=== PATIENT | female | born 1940 | race Caucasian/White ===

== ENCOUNTER → 2019-10-11 13:24 | Outpatient (CLI) | payer OTHER ==
--- NOTE | 2019-10-11 15:40 | NUR ---
DC INSTRUCTIONS GIVEN TO PT. STATES UNDERSTANDING. X-RAY SHOWED PICC IN PLACE. CALLING FOR TRANSPORTATION.
--- NOTE | 2019-10-11 15:51 | NUR ---
TRANSPORTATION ON THEIR WAY
== END | disposition home or self-care (01) ==
LOC: D.OPS 13:24
PROVIDERS: ATTEND Family Medicine
DX: A49.02 Methicillin resistant Staphylococcus aureus infection, unspecified site (principal)

== ENCOUNTER 2020-02-16 12:50 | Inpatient (IN) | payer OTHER ==
[~2020-02-16] VITALS: Ht 170.2 cm; Wt 56.7 kg
[2020-02-16 13:09] LABS: BASOPHILS 0.1 % (0-2); EOSINOPHILS 0.5 % (0-7); HEMATOCRIT 29.7 % (36.0-48.0); HEMOGLOBIN 9.4 g/dL (12-16); IMMATURE GRANULOCYTES 0.5 % (0-5); LYMPHOCYTES 6.8 % (15-50); MCH 28.1 pg (26.0-34.0); MCHC 31.6 g/dL (31.0-37.0); MCV 88.9 fL (80.0-100.0); MEAN PLATELET VOLUME 9.2 fL (7.4-10.4); MONOCYTES 6.1 % (2-11); PLATELET COUNT 444 10x3/uL (130-400); RBC 3.34 10x6/uL (4.00-5.40); RDW 18.9 % (11.5-14.5); WBC 16.7 10x3/uL (4.8-10.8)
[2020-02-16 13:16] LABS: APTT 29.7 SECONDS (22.8-39.4); INR 1.02 (0.85-1.17); PROTIME 13.3 SECONDS (11.6-15.0)
[2020-02-16 13:19] LABS: CALC OSMOLALITY 301 mosm/kg (275-300); CALCIUM 10.5 mg/dL (8.5-10.1); CARBON DIOXIDE 27.5 mmol/L (21.0-32.0); CHLORIDE - SERUM 107 mmol/L (98-107); CREATININE - SERUM 1.6 mg/dL (0.6-1.3); GLUCOSE 176 mg/dL (74-106); POTASSIUM - SERUM 3.6 mmol/L (3.5-5.1); SODIUM 144 mmol/L (136-145); UREA NITROGEN 42 mg/dL (7-18); eGFR NON AFRICAN AMERICAN 33 mL/min (90-120)
[2020-02-16 13:32] LABS: ALBUMIN 2.1 g/dL (3.4-5.0); ALKALINE PHOSPHATASE 164 U/L (30-120); ALT (SGPT) 13 U/L (10-68); BILIRUBIN - TOTAL 0.39 mg/dL (0.2-1.3); CKMB 0.8 U/L (0.0-3.6); CREATINE KINASE 21 UL (21-215); PROTEIN - SERUM 6.3 g/dL (6.4-8.2)
[2020-02-16 13:33] LABS: TROPONIN-I < 0.017 ng/mL (0.000-0.060)
--- NOTE | 2020-02-16 13:47 | NUR ---
CRITICAL LATIC ACID 2.6
[2020-02-16] MEDS ORDERED: TYLENOL ARTHRI650 MG PO (14:25)
[2020-02-16] MEDS ORDERED: ACIDOPHILUS-PE1 EACH PO (14:26)
[2020-02-16] MEDS ORDERED: CALCIUM 500 +1 EAC3 PO (14:26)
[2020-02-16] MEDS ORDERED: PLAVIX75 MG PO (14:26)
[2020-02-16] MEDS ORDERED: DILAUDID2 MG PO (14:27)
[2020-02-16] MEDS ORDERED: DURAGESIC1 PATCH .2 TRANSDERM (14:28)
[2020-02-16] MEDS ORDERED: HUMALOG 30100 UNITS/ SC (14:28)
[2020-02-16] MEDS ORDERED: GABAPENTIN300 MG PO (14:28)
[2020-02-16] MEDS ORDERED: FEROCON CAPSUL1 EACH PO (14:28)
[2020-02-16] MEDS ORDERED: LEVAQUIN750 MG PO (14:29)
[2020-02-16] MEDS ORDERED: MAG-OX 400 MG400 MG PO (14:29)
[2020-02-16] MEDS ORDERED: LISINOPRIL5 MG PO (14:29)
[2020-02-16] MEDS ORDERED: GLUCOPHAGE500 MG PO (14:29)
[2020-02-16] MEDS ORDERED: VITAMIN C500 M1 PO (14:30)
[2020-02-16] MEDS ORDERED: MULTI-DAY VITAM1 TAB PO (14:30)
[2020-02-16] MEDS ORDERED: OXYCODONE HCL5 M1 PO (14:30)
[2020-02-16] MEDS ORDERED: ZOLOFT25 MG PO (14:31)
[2020-02-16 18:24] VITALS: BP 129/53; BMI 19.6
--- NOTE | 2020-02-16 19:40 | NUR ---
PT SITTING UP IN BED WITHOUT DISTRESS, ORIENTED TO SELF ONLY. IV LEFT AC SL, FLUSHES EASILY. HEEL PROTECTORS BILAT. FENTANYL PATCH LEFT SHOULDER. DENIES PAIN. CL IN REACH, WILL CTM
[2020-02-16 20:00] VITALS: BP 115/58
[2020-02-17] VITALS: BP 118/48
[2020-02-17 04:00] VITALS: BP 99/49
[2020-02-17 04:07] LABS: BASOPHILS 0.1 % (0-2); EOSINOPHILS 1.9 % (0-7); HEMATOCRIT 25.8 % (36.0-48.0); HEMOGLOBIN 8.1 g/dL (12-16); IMMATURE GRANULOCYTES 0.5 % (0-5); LYMPHOCYTES 6.5 % (15-50); MCH 27.6 pg (26.0-34.0); MCHC 31.4 g/dL (31.0-37.0); MCV 88.1 fL (80.0-100.0); MEAN PLATELET VOLUME 9.4 fL (7.4-10.4); MONOCYTES 7.4 % (2-11); NEUTROPHILS 83.6 % (40-80); PLATELET COUNT 397 10x3/uL (130-400); RBC 2.93 10x6/uL (4.00-5.40); RDW 18.7 % (11.5-14.5)
[2020-02-17 04:40] LABS: ALBUMIN 1.8 g/dL (3.4-5.0); ANION GAP 10.7 mmol/L (8-16); BILIRUBIN - TOTAL 0.28 mg/dL (0.2-1.3); CALCIUM 10.6 mg/dL (8.5-10.1); CARBON DIOXIDE 29.4 mmol/L (21.0-32.0); CREATININE - SERUM 1.6 mg/dL (0.6-1.3); POTASSIUM - SERUM 4.1 mmol/L (3.5-5.1); PROTEIN - SERUM 5.4 g/dL (6.4-8.2)
[2020-02-17 04:59] LABS: C-REACTIVE PROTEIN 16.8 mg/dL (0.0-0.9)
--- NOTE | 2020-02-17 06:05 | NUR ---
PT HAS NOT VOIDED ALL SHIFT. ABD SLIGHTLY DISTENDED. PT CONFUSED AND COULD NOT ANSWER ABOUT NEEDING TO VOID. BLADDER SCAN SHOWED >296ML. NEEDED UA, IN AND OUT CATHED PT. 300ML OUT. URINE SAMPLE SENT TO LAB
[2020-02-17 06:23] LABS: BILIRUBIN NEGATIVE (NEGATIVE); GLUCOSE NEGATIVE (NEGATIVE); KETONE NEGATIVE (NEGATIVE); NITRITE NEGATIVE (NEGATIVE); SPECIFIC GRAVITY 1.015 (1.005-1.020); UROBILINOGEN NORMAL (NORMAL)
[2020-02-17 06:25] LABS: BACTERIA MODERATE /hpf (NEGATIVE); EPITHELIAL CELLS 0-5 /hpf (0-5); RED CELLS - URINE 0-5 /hpf (0-5)
--- NOTE | 2020-02-17 07:25 | NUR ---
CONTACTED @ [facility] REGARDING PT HAVING POA. WAS INFORMED THAT PT IS ABLE TO MAKE OWN DECISIONS AND ABLE TO SIGN FOR SELF.
--- NOTE | 2020-02-17 07:38 | NUR ---
PT RESTING IN BED WITH EYES OPEN. ALERT AND ORIENTED TO PERSON AND SITUATION. CONSENTS FOR PROCEDURE OBTAINED AT THIS TIME. PT VOICES UNDERSTANDING TO PROCEDURE TO BE PERFORMED. IV TO LEFT AC WITH NS @ KVO INFUSING VIA PUMP. SITE WITHOUT REDNESS OR EDEMA. PT DENIES PAIN AT THIS TIME. DENIES FURTHER NEEDS AT THIS TIME. CL WITHIN REACH. ENCOURAGED TO CALL WITH NEEDS. CONTINUE POC
--- NOTE | 2020-02-17 07:58 | NUR ---
CONTACTED LENORA AMBROCIO, SISTER TO PT PER PT REQUEST. INFORMED MRS. AMBROCIO OF PT HOSPITALIZATION AND PROCEDURE NEEDING TO BE PERFORMED. SHE VOICES UNDERSTANDING AND VERBALIZES PERMISSION FOR SURGERY TO BE PERFORMED TO HELP PT. INFORMED FAMILY THAT STAFF WOULD MAKE CONTACT WITH HER POST OP TO PROVIDE UPDATE. FAMILY VOICES UNDERSTANDING AND THANKFUL FOR STAFF'S HELP SHE [place]ES LIVE IN ANOTHER STATE. MRS. AMBROCIO VOICES THAT SHE WILL CONTACT BROTHER TO INFORM HIM OF CURRENT STATUS AND UPCOMING PROCEDURE.
[2020-02-17 09:13] VITALS: BP 98/53
[2020-02-17 10:23] VITALS: Ht 170.2 cm; Wt 56.7 kg
[2020-02-17 12:36] VITALS: BP 117/76
--- NOTE | 2020-02-17 16:18 | MORECARE ---
CASE MANAGEMENT DISCHARGE SUMMARY PATIENT: LINDSEY BRIZUELA UNIT: [id number] ADM DATE: 02/16/20 AGE: 79 : 40 SEX: F ROOM/BED: D.2204 AUTHOR: TARYN,DOC PHYSICIAN: REFERRING PHYSICIAN: VITALIY KENNY MD DATE OF SERVICE: 02/17/20 Discharge Plan Patient Name: LINDSEY BRIZUELA Facility: [facility]:[place] : 1940 Planned Disposition: Nursing Facility [facility] Cert Anticipated Discharge Date: Discharge Date: Expected LOS: Initial Reviewer: [email or web address] Initial Review Date: 02/16/2020 Generated: 02/17/20 5:18 pm Comments DCP- Discharge Planning Updated by [email or web address]: Estela Galdamez on 02/17/20 3:[address] Patient Name: LINDSEY BRIZUELA Admission Status: ER Accout number: [id number] Admission Date: 02-16-2020 : 1940 Admission Diagnosis: Attending: ZOYA, Current LOS: 1 Anticipated DC Date: Planned Disposition: Nursing Facility [facility] Cert Primary Insurance: NOVASYCR Discharge Planning Comments: PATIENT IS UNABLE TO ANSWER QUESTIONS, SHE IS A CUSTODIAL RESIDENT AT [facility] I SPOKE WITH FAITH AT [facility] AND SHE STATED THAT THE PATIENT IS USUALLY VERY ALERY AND ORIENTED. SHE HAS REFUSED CARE AND THERAPY IN THE PAST, BUT THEY WERE RECENTLY GETTING HER UP TO A NAM CHAIR AND TAKING HER TO THE [facility] FOR MEALS. SHE HAS BEEN THERE 1 YEAR IN A CUSTODIAL BED. SHE HAS A SON, CARL BRIZUELA [phone] HE COME OFTEN TO VISIT HER. I HAVE ATTEMPTED TO CALL HIM MULTIPLE TIMES TODAY TO GET CONSENT FROM HIM FOR SURGERY. DR ARGUETA WAS GOING TO TAKE HER TO SURGERY TODAY, BUT SHE IS NOT ABLE TO SIGN HER OWN CONSENTS. CM WILL CONTINUE TO FOLLOW AND ASSIST WITH GETTING AHOLD OF CARL I LEFT VOICE MESSAGES AT 1145 & 1600 Chief Payroll Clerk: Estela Galdamez DCPIA - Discharge Planning Initial Assessment Updated by [email or web address]: Estela Galdamez on 02/17/20 4:13 pm * Is the patient Alert and Oriented? No * PCP [facility] * Pharmacy [facility] * Facility Name [facility] * ADLs Total Dependent * List name and contact numbers for known caregivers / representatives who currently or will assist patient after discharge: CARL BRIZUELA (SON) [phone] * Verbal permission to speak to the caregivers and representatives has been obtained from the patient. N/A * Additional services required to return to the preadmission environment? No * Can the patient safely return to the preadmission environment? Yes * Has this patient been hospitalized within the prior 30 days at any hospital? No Patient Name: LINDSEY BRIZUELA Page [phone] at 1618 All edits/amendments must be made on the electronic document DICTATION DATE: 02/17/201617 MEDICAL ASSISTING PROGRAM DIRECTOR: ROSMERY 02/17/201617 RPT#: [id number] DC DATE: STATUS: ADM IN [facility] [address] [place] [address] END OF REPORT
[2020-02-17 16:46] VITALS: BP 104/62
[2020-02-17 20:00] VITALS: BP 98/37
[2020-02-18] VITALS (10 sets, daily range): BP systolic 83–128; BP diastolic 42–86
--- NOTE | 2020-02-18 02:28 | NUR ---
I have reviewed this patient and I concur with the Shift Assessment completed by the Licensed Practical Nurse today this shift.
[2020-02-18 07:09] LABS: % SATURATION 10 % (15-55); IRON 15 ug/dl (35-150); TOTAL IRON BIND CAPACITY 139 ug/dl (260-445); UNSAT IRON BIND CAPACITY 124 ug/dl (150-375)
[2020-02-18 08:40] LABS: BASOPHILS 0.2 % (0-2); EOSINOPHILS 2.1 % (0-7); HEMATOCRIT 25.8 % (36.0-48.0); HEMOGLOBIN 8.1 g/dL (12-16); IMMATURE GRANULOCYTES 0.6 % (0-5); LYMPHOCYTES 6.6 % (15-50); MCH 27.8 pg (26.0-34.0); MCHC 31.4 g/dL (31.0-37.0); MCV 88.7 fL (80.0-100.0); MEAN PLATELET VOLUME 9.9 fL (7.4-10.4); MONOCYTES 7.6 % (2-11); NEUTROPHILS 82.9 % (40-80); PLATELET COUNT 398 10x3/uL (130-400); RBC 2.91 10x6/uL (4.00-5.40); RDW 19.1 % (11.5-14.5); WBC 10.9 10x3/uL (4.8-10.8)
[2020-02-18 08:52] LABS: ALBUMIN 1.8 g/dL (3.4-5.0); ANION GAP 14.9 mmol/L (8-16); BILIRUBIN - TOTAL 0.28 mg/dL (0.2-1.3); CALCIUM 10.8 mg/dL (8.5-10.1); CARBON DIOXIDE 26.8 mmol/L (21.0-32.0); CREATININE - SERUM 1.8 mg/dL (0.6-1.3); POTASSIUM - SERUM 4.7 mmol/L (3.5-5.1); PROTEIN - SERUM 4.9 g/dL (6.4-8.2)
--- NOTE | 2020-02-18 10:00 | NUR ---
PATIENT GIVEN NECESSARY MEDICATIONS. PER EMAR WITH SOME DIFFICULTY. PATIENT SHOWED CONFUSION FOLLOWING COMMANDS SUCH OPENING HER MOUTH TO GET THE PILLS IN. CL IN REACH. BED SITTING UP. WCTM
--- NOTE | 2020-02-18 12:22 | NUR ---
Pt has numerous skin issues. 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 It is covered with necrotic tissue. There are deep tissue injury areas surrounding it. Left lateral leg has a chronic wound measuring 4.5cm x 3cm. Left heel is boggy and appears to have had a previous ulcer. Right lower leg is covered with open wounds. Unna boot was applied per Dr. Loera's orders. Coccyx / Sacral area was covered with ABD pads and secured with medipore for protection. Pt is scheduled for I & D of this area. Right leg: Unna boot applied Left leg/heel: Protected with mepilex and wrapped with kerlix. Pt is incontinent of bowels and bladder. She is unable to assist in any ADLs. She is being turned/repositioned q 2 hours by her primary nurse. Wound care will monitor.
--- NOTE | 2020-02-18 12:57 | NUR ---
PATIENT PREOPPED FOR SURGERY. ELIZABETH PLACED. STERILE TECHNIQUE MAINTAINED. 10 ML OF FLUID PLACED IN BALLOON. TOLERATED WELL. ASSISTED BY PREOP TECHS. WENT TO SURGERY DIRECTLY AFTER.
[2020-02-19 00:56] VITALS: BP 98/39
[2020-02-19 03:00] VITALS: BP 108/47
[2020-02-19 07:01] LABS: BASOPHILS 0.2 % (0-2); EOSINOPHILS 1.2 % (0-7); HEMATOCRIT 22.5 % (36.0-48.0); IMMATURE GRANULOCYTES 0.5 % (0-5); LYMPHOCYTES 7.8 % (15-50); MCH 27.3 pg (26.0-34.0); MCHC 31.1 g/dL (31.0-37.0); MCV 87.9 fL (80.0-100.0); MEAN PLATELET VOLUME 9.5 fL (7.4-10.4); MONOCYTES 6.8 % (2-11); NEUTROPHILS 83.5 % (40-80); PLATELET COUNT 400 10x3/uL (130-400); RBC 2.56 10x6/uL (4.00-5.40); WBC 11.1 10x3/uL (4.8-10.8)
[2020-02-19 07:23] LABS: ALBUMIN 1.6 g/dL (3.4-5.0); BILIRUBIN - TOTAL 0.33 mg/dL (0.2-1.3); CALCIUM 10.2 mg/dL (8.5-10.1); CREATININE - SERUM 1.7 mg/dL (0.6-1.3)
[2020-02-19 08:00] VITALS: BP 113/52
--- NOTE | 2020-02-19 08:00 | NUR ---
ALERT WITH CONFUSION NOTED D/T DEMENTIA. REQUIRES ASSSIT WITH FEEDING AND TAKES MEDS WHOLE. DRESSING INTACT TO BLE WITH WOUND VAC INTACT TO RECTAL ABCESS. IV TO RT F/A WITH NO S/S OF INFECTION/INFILTRATION. O2 2L N/C. LUNGS CTA WITH BOWEL SOUND NOTED X4.ELIZABETH CATH PATENT. ORDER NOTED FOR 1 UNIT PRBC'S. DENIES ANY PAINOR DISCOMFORT AT THIS TIME.
[2020-02-19 08:45] VITALS: BP 115/50
--- NOTE | 2020-02-19 11:55 | NUR ---
STARTED 1ST UNIT PRBC'S WITH NO S/S OF REACTION NOTED.CONSUMED 75% OF LUNCH
[2020-02-19 12:00] VITALS: BP 126/58
[2020-02-19 16:00] VITALS: BP 136/60
--- NOTE | 2020-02-19 17:00 | NUR ---
STARTED 2ND UNIT PRBC'S WITH NO REACTION NOTED.
--- NOTE | 2020-02-19 18:48 | NUR ---
FINISHED 2ND UNIT PRBC'S WITH NORMAL SALINE FLUSHING AT THIS TIME.
[2020-02-20] VITALS: BP 125/54
[2020-02-20 04:00] VITALS: BP 110/50
[2020-02-20 06:53] LABS: ALBUMIN 1.6 g/dL (3.4-5.0); ANION GAP 12.8 mmol/L (8-16); BILIRUBIN - TOTAL 0.47 mg/dL (0.2-1.3); CALCIUM 9.6 mg/dL (8.5-10.1); CARBON DIOXIDE 26.7 mmol/L (21.0-32.0); CREATININE - SERUM 1.7 mg/dL (0.6-1.3); POTASSIUM - SERUM 3.5 mmol/L (3.5-5.1); PROTEIN - SERUM 5.2 g/dL (6.4-8.2); VANCOMYCIN - RANDOM 14.6 ug/mL (10.0-20.0)
[2020-02-20 08:08] LABS: BASOPHILS 0.2 % (0-2); EOSINOPHILS 2.6 % (0-7); HEMATOCRIT 30.1 % (36.0-48.0); HEMOGLOBIN 9.8 g/dL (12-16); IMMATURE GRANULOCYTES 1.4 % (0-5); LYMPHOCYTES 9.5 % (15-50); MCH 27.9 pg (26.0-34.0); MCHC 32.6 g/dL (31.0-37.0); MCV 85.8 fL (80.0-100.0); MEAN PLATELET VOLUME 8.9 fL (7.4-10.4); MONOCYTES 8.8 % (2-11); NEUTROPHILS 77.5 % (40-80); PLATELET COUNT 321 10x3/uL (130-400); RBC 3.51 10x6/uL (4.00-5.40); RDW 17.3 % (11.5-14.5); WBC 10.6 10x3/uL (4.8-10.8)
--- NOTE | 2020-02-20 08:41 | NUR ---
ALERT AND ORIENTED TO SELF ONLY DUE TO DECREASE IN COGNITION RELATED TO DEMENTIA. DRESSINGS INTACT TO BLE AND WOUND VAC INTACT TO RECTAL AREA. HEEL PROTECTORS ON AND CHANGED POSITION FOR COMFORT. ELIZABETH CATH PATENT WITH RONAL URINE. O2 1L N/C. REQUIRES ASSSIT WITH FEEDING. FALL PRECAUTIONS IN PLACE. IVF INFUSING TO RT. F/A WITH NO S/S OF INFECTION/INFILTRATION.
[2020-02-20 09:00] VITALS: BP 105/47
[2020-02-20 12:00] VITALS: BP 128/57
[2020-02-20 15:25] VITALS: BP 118/57
[2020-02-20 21:14] VITALS: BP 148/61
[2020-02-21 01:01] VITALS: BP 143/59
[2020-02-21 04:47] LABS: BASOPHILS 0.2 % (0-2); EOSINOPHILS 3.2 % (0-7); HEMATOCRIT 31.4 % (36.0-48.0); HEMOGLOBIN 10.2 g/dL (12-16); IMMATURE GRANULOCYTES 1.4 % (0-5); LYMPHOCYTES 10.4 % (15-50); MCH 27.7 pg (26.0-34.0); MCHC 32.5 g/dL (31.0-37.0); MCV 85.3 fL (80.0-100.0); MEAN PLATELET VOLUME 9.5 fL (7.4-10.4); NEUTROPHILS 75.8 % (40-80); PLATELET COUNT 357 10x3/uL (130-400); RBC 3.68 10x6/uL (4.00-5.40); RDW 17.3 % (11.5-14.5); WBC 10.5 10x3/uL (4.8-10.8)
[2020-02-21 05:16] VITALS: BP 140/60
[2020-02-21 05:22] LABS: ALBUMIN 1.5 g/dL (3.4-5.0); ANION GAP 9.3 mmol/L (8-16); BILIRUBIN - TOTAL 0.34 mg/dL (0.2-1.3); CALCIUM 9.4 mg/dL (8.5-10.1); CARBON DIOXIDE 28.2 mmol/L (21.0-32.0); CREATININE - SERUM 1.4 mg/dL (0.6-1.3); POTASSIUM - SERUM 3.5 mmol/L (3.5-5.1)
[2020-02-21 08:04] VITALS: BP 155/64
[2020-02-21 12:30] VITALS: BP 165/59
--- NOTE | 2020-02-21 12:34 | NUR ---
Nutrition follow-up: Calorie count started today Diet: Regular with Ensure TID PO intake ~55% average of last 6 meals Wound VAC in place to sacrum Pt needs assistance with meals 2/2 dementia RDN following.
--- NOTE | 2020-02-21 14:16 | NUR ---
REMAINS WITHOUT NEEDS.PATIENT HAS NOT EATEN MUCH TODAY. SHE TAKES 2 BITES AND REFUSES TO EAT MORE.MONITOR FOR NEEDS
[2020-02-21 17:03] VITALS: BP 150/71
--- NOTE | 2020-02-21 18:24 | NUR ---
DID NOT EAT DINNER,REFUSED. SHE IS WITHOUT DISTRESS.CONT PLAN OF CARE
[2020-02-21 20:00] VITALS: BP 150/62
[2020-02-22] VITALS: BP 125/59
--- NOTE | 2020-02-22 01:56 | NUR ---
I have reviewed this patient and I concur with the Shift Assessment completed by the Licensed Practical Nurse today this shift.
[2020-02-22 04:00] VITALS: BP 130/61
--- NOTE | 2020-02-22 04:15 | NUR ---
2130) ATTEMPTED TO GIVE APPLESAUCE TO GIVE MEDS WOULD NOT OPEN MOUTH.DRSGS. DRY AND INTACT TO LOWER EXT. BILAT.PEDAL PULSES PRESENT.FEET ELEVATED. WILL CONTINUE TO MONITOR FOR ANY IN NEUROVASCULAR STATUS AND FOLLOW CURRENT PLAN OF CARE.
[2020-02-22 04:32] LABS: BASOPHILS 0.2 % (0-2); EOSINOPHILS 2.6 % (0-7); HEMATOCRIT 33.2 % (36.0-48.0); HEMOGLOBIN 10.7 g/dL (12-16); IMMATURE GRANULOCYTES 1.8 % (0-5); LYMPHOCYTES 11.5 % (15-50); MCH 27.9 pg (26.0-34.0); MCHC 32.2 g/dL (31.0-37.0); MCV 86.5 fL (80.0-100.0); MONOCYTES 9.8 % (2-11); NEUTROPHILS 74.1 % (40-80); PLATELET COUNT 337 10x3/uL (130-400); RBC 3.84 10x6/uL (4.00-5.40); RDW 17.5 % (11.5-14.5)
[2020-02-22 04:50] LABS: ALBUMIN 1.5 g/dL (3.4-5.0); ANION GAP 12.4 mmol/L (8-16); BILIRUBIN - TOTAL 0.32 mg/dL (0.2-1.3); CALCIUM 9.3 mg/dL (8.5-10.1); CARBON DIOXIDE 26.1 mmol/L (21.0-32.0); CREATININE - SERUM 1.2 mg/dL (0.6-1.3); POTASSIUM - SERUM 3.5 mmol/L (3.5-5.1); PROTEIN - SERUM 5.1 g/dL (6.4-8.2)
[2020-02-22 07:54] VITALS: BP 156/69
--- NOTE | 2020-02-22 08:27 | NUR ---
Nutrition: Calorie Count: Pt has refused all meals on 02/21/20. Nothing to record Pt not meeting estimated energy needs Recommend PEG tube placement and TF if medically feasible. RDN following.
[2020-02-22 12:06] VITALS: BP 167/78
[2020-02-22 15:44] VITALS: BP 123/63
[2020-02-22 21:44] VITALS: BP 160/69
--- NOTE | 2020-02-22 23:48 | NUR ---
REC'D CHGE OF SHIFT WALKING ROUNDS.IN SITTING POSITION.DRSG TO COCCYX INTACT.BLESSING BOOT DRSG.INTACT RIGHT LOWER EXT.02 2L NC. MONITOR SHOWING SINUS RHYTHM. FSBS 147. WILL CONTINUE TO MONITOR FOR ANY FURTHER CHGES IN NEURVASCULAR STATUS AND FOLLOW CURRENT PLAN OF CARE.
[2020-02-23 00:50] VITALS: BP 150/56
--- NOTE | 2020-02-23 05:00 | NUR ---
I have reviewed this patient and I concur with the Shift Assessment completed by the Licensed Practical Nurse today this shift.
[2020-02-23 05:01] LABS: BASOPHILS 0.2 % (0-2); EOSINOPHILS 2.3 % (0-7); HEMATOCRIT 31.3 % (36.0-48.0); IMMATURE GRANULOCYTES 1.7 % (0-5); LYMPHOCYTES 13.2 % (15-50); MCH 27.7 pg (26.0-34.0); MCHC 31.9 g/dL (31.0-37.0); MCV 86.7 fL (80.0-100.0); MEAN PLATELET VOLUME 9.3 fL (7.4-10.4); MONOCYTES 10.2 % (2-11); NEUTROPHILS 72.4 % (40-80); PLATELET COUNT 334 10x3/uL (130-400); RBC 3.61 10x6/uL (4.00-5.40); RDW 17.4 % (11.5-14.5); WBC 9.2 10x3/uL (4.8-10.8)
[2020-02-23 05:22] LABS: ALBUMIN 1.5 g/dL (3.4-5.0); ANION GAP 10.4 mmol/L (8-16); BILIRUBIN - TOTAL 0.27 mg/dL (0.2-1.3); CALCIUM 8.7 mg/dL (8.5-10.1); CARBON DIOXIDE 25.9 mmol/L (21.0-32.0); CREATININE - SERUM 1.2 mg/dL (0.6-1.3); POTASSIUM - SERUM 3.3 mmol/L (3.5-5.1); PROTEIN - SERUM 4.8 g/dL (6.4-8.2)
[2020-02-23 06:55] VITALS: BP 146/52
--- NOTE | 2020-02-23 07:20 | NUR ---
PT RESTING IN BED. RESP EVEN AND UNLABORED. PT AWAKE, ORIENTED TO PERSON ONLY AT THIS TIME. PT DOES RESPOND TO SIMPLE YES AND NO QUESTIONS. PT DENIES PAIN AT THIS TIME. IV TO RIGHT FOREARM WITH 1/2 NS @ 75ML/HR INFUSING VIA PUMP. SITE WITHOUT REDNESS OR EDEMA. PT DENIES FURTHER NEEDS AT THIS TIME. CL WITHIN REACH. ENCOURAGED TO CALL WITH NEEDS. CONTINUE POC
[2020-02-23 09:21] VITALS: BP 154/70
--- NOTE | 2020-02-23 09:51 | NUR ---
PT RESTING QUIETLY IN BED. MORNING MEDICATIONS ADMINISTERED PER MD ORDERS. PT CONSUMED 120ML OF MILK AT THIS TIME, THEN VOICES "THAT IS ENOUGH FOR NOW" PT DENIES FURTHER NEEDS AT THIS TIME. CL WITHIN REACH. ENCOURAGED TO CALL WITH NEEDS.
--- NOTE | 2020-02-23 11:45 | NUR ---
PT RESTING IN BED WITH EYES OPENED. OFFERED PT WATER, PT DENIES. OFFERED PT MILK. PT CONSUMED 240ML OF MILK AT THIS TIME. DENIES PAIN AT THIS TIME. CL WITHIN REACH. ENCOURAGED TO CALL WITH NEEDS.
--- NOTE | 2020-02-23 12:18 | MORECARE ---
CASE MANAGEMENT DISCHARGE SUMMARY PATIENT: LINDSEY BRIZUELA UNIT: [id number] ADM DATE: 02/16/20 AGE: 79 : 40 SEX: F ROOM/BED: D.2204 AUTHOR: RICHARD CENTENO PHYSICIAN: REFERRING PHYSICIAN: VITALIY KENNY MD DATE OF SERVICE: 02/23/20 Discharge Plan Patient Name: LINDSEY BRIZUELA [facility] [facility] 1940 Planned Disposition: Nursing Facility [facility] Cert Anticipated Discharge Date: Discharge Date: Expected LOS: Initial Reviewer: [email or web address] Initial Review Date: 02/16/2020 Generated: 02/23/20 1:18 pm Comments DCP- Discharge Planning Updated by [email or web address]: Estela Galdamez on 02/23/20 11:[address] I spoke with Ginny at [facility] to see if there was documentation about hospice. She said I would need to speak with the patient and/or her sister. Ginny stated that she is her own decision maker, but her sister pays her bill. She does have a son who is local. I spoke with the patient to see what she would want and she asked to know her options. I tried to explain them to her the best I could, but I do not think she understood. She then said "I don't even know where I am at" I asked her if she has a sister and she answered that appropriately. She did given me permission to call her sister. I called her and left her a message for her to call me back. 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 SHE HAS REFUSED CARE AND THERAPY IN THE PAST, BUT THEY WERE RECENTLY GETTING HER UP TO A NAM CHAIR AND TAKING HER TO THE [facility] FOR MEALS. SHE HAS BEEN THERE 1 YEAR IN A [facility] BED. SHE HAS A SON, CARL BRIZUELA [phone] HE COME OFTEN TO VISIT HER. I HAVE ATTEMPTED TO CALL HIM MULTIPLE TIMES TODAY TO GET CONSENT FROM HIM FOR SURGERY. DR ARGUETA WAS GOING TO TAKE HER TO SURGERY TODAY, BUT SHE IS NOT ABLE TO SIGN HER OWN CONSENTS. CM WILL CONTINUE TO FOLLOW AND ASSIST WITH GETTING AHOLD OF CARL I LEFT VOICE MESSAGES AT 1145 & 1600 [employer] Technical Assistant: Estela Galdamez DCPIA - Discharge Planning Initial Assessment Updated by [email or web address]: Estela Galdamez on 02/17/20 4:13 pm * Is the patient Alert and Oriented? No * PCP [facility] * [facility] * Facility Name [facility] * ADLs Total Dependent * List name and contact numbers for known caregivers / representatives who currently or will assist patient after discharge: CARL BRIZUELA (SON) [phone] * Verbal permission to speak to the caregivers and representatives has been obtained from the patient. N/A * Additional services required to return to the preadmission environment? No * Can the patient safely return to the preadmission environment? Yes * Has this patient been hospitalized within the prior 30 days at any hospital? No Last DP export: 02/17/20 3:18 p Patient Name: LINDSEY BRIZUELA Page [phone] at 1218 All edits/amendments must be made on the electronic document DICTATION DATE: 02/23/201217 DAM WORKER: ROSMERY 02/23/201217 RPT#: [id number] DC DATE: STATUS: ADM IN [facility] [address] [place] [address] END OF REPORT
--- NOTE | 2020-02-23 13:06 | NUR ---
Nutrition follow-up: Diet: Regular as tolerated with Ensure TID PO intake was better 02/22/20; pt ate ~35% average of 3 meals. Pt not eating enough for wound healing at this time. Labs reviewed Recommend PEG tube placement and TF started. RDN following.
--- NOTE | 2020-02-23 13:25 | MORECARE ---
CASE MANAGEMENT DISCHARGE SUMMARY PATIENT: LINDSEY BRIZUELA UNIT: [id number] ADM DATE: 02/16/20 AGE: 79 : 40 SEX: F ROOM/BED: D.2204 AUTHOR: RICHARD CENTENO PHYSICIAN: REFERRING PHYSICIAN: VITALIY KENNY MD DATE OF SERVICE: 02/23/20 Discharge Plan Patient Name: LINDSEY BRIZUELA [facility] [facility] 1940 Planned Disposition: Nursing Facility [facility] Cert Anticipated Discharge Date: Discharge Date: Expected LOS: Initial Reviewer: [email or web address] Initial Review Date: 02/16/2020 Generated: 02/23/20 2:24 pm Comments DCP- Discharge Planning Updated by [email or web address]: Estela Galdamez on 02/23/20 12:[address] I spoke with Robin (sister) at length about her options. She would like to talk with her sister. I attempted to make arrangements but she does not have a phone in her room. I have placed a work order to get her a phone. She will then speak with Vane, her brother and the patient's son about Hospice and get back with me DCP- Discharge Planning Updated by [email or web address]: Estela Galdamez on 02/23/20 11:[address] I spoke with Ginny at [facility] to see if there was documentation about hospice. She said I would need to speak with the patient and/or her sister. Ginny stated that she is her own decision maker, but her sister pays her bill. She does have a son who is local. I spoke with the patient to see what she would want and she asked to know her options. I tried to explain them to her the best I could, but I do not think she understood. She then said "I don't even know where I am at" I asked her if she has a sister and she answered that appropriately. She did given me permission to call her sister. I called her and left her a message for her to call me back. DCP- Discharge Planning Updated by [email or web address]: Estela Galdamez on 02/17/20 3:[address] Patient Name: LINDSEY BRIZUELA Admission Status: ER Accout number: [id number] Admission Date: 02-16-2020 : 1940 Admission Diagnosis: Attending: ZOYA, Current LOS: 1 Anticipated DC Date: Planned Disposition: Nursing Facility [facility] Primary [facility] Discharge Planning Comments: PATIENT IS UNABLE TO ANSWER QUESTIONS, SHE IS A CORRECTION RESIDENT AT [facility] I SPOKE WITH FAITH AT [facility] AND SHE STATED THAT THE PATIENT IS USUALLY VERY ALERY AND ORIENTED. SHE HAS REFUSED CARE AND THERAPY IN THE PAST, BUT THEY WERE RECENTLY GETTING HER UP TO A NAM CHAIR AND TAKING HER TO THE [facility] FOR MEALS. SHE HAS BEEN THERE 1 YEAR IN A CORRECTION BED. SHE HAS A SON, CARL BRIZUELA [phone] HE COME OFTEN TO VISIT HER. I HAVE ATTEMPTED TO CALL HIM MULTIPLE TIMES TODAY TO GET CONSENT FROM HIM FOR SURGERY. DR ARGUETA WAS GOING TO TAKE HER TO SURGERY TODAY, BUT SHE IS NOT ABLE TO SIGN HER OWN CONSENTS. CM WILL CONTINUE TO FOLLOW AND ASSIST WITH GETTING AHOLD OF CARL I LEFT VOICE MESSAGES AT 1145 & 1600 Grape Pruner: Estela Galdamez DCPIA - Discharge Planning Initial Assessment Updated by [email or web address]: Estela Galdamez on 02/17/20 4:13 pm * Is the patient Alert and Oriented? No * PCP [facility] * Pharmacy [facility] * Facility Name [facility] * ADLs Total Dependent * List name and contact numbers for known caregivers / representatives who currently or will assist patient after discharge: CARL BRIZUELA (SON) [phone] * Verbal permission to speak to the caregivers and representatives has been obtained from the patient. N/A * Additional services required to return to the preadmission environment? No * Can the patient safely return to the preadmission environment? Yes * Has this patient been hospitalized within the prior 30 days at any hospital? No Last DP export: 02/23/20 11:18 a Patient Name: LINDSEY BRIZUELA Page [phone] at 1325 All edits/amendments must be made on the electronic document DICTATION DATE: 02/23/20 1325 TIP SCOURER: ROSMERY 02/23/20 1325 RPT#: [id number] DC DATE: STATUS: ADM IN [facility] [address] [place] [address] END OF REPORT
--- NOTE | 2020-02-23 13:30 | NUR ---
PT SITTING UP IN BED FEEDING SELF LUNCH. PT GLEN WELL. PT DENIES ANY NEED FOR HELP AT THIS TIME. CL WITHIN REACH. ENCOURAGED TO CALL WITH NEEDS.
[2020-02-23 13:45] VITALS: BP 146/89
--- NOTE | 2020-02-23 17:04 | MORECARE ---
CASE MANAGEMENT DISCHARGE SUMMARY PATIENT: LINDSEY BRIZUELA UNIT: [id number] ADM DATE: 02/16/20 AGE: 79 : 40 SEX: F ROOM/BED: D.2204 AUTHOR: RICHARD CENTENO PHYSICIAN: REFERRING PHYSICIAN: VITALIY KENNY MD DATE OF SERVICE: 02/23/20 Discharge Plan Patient Name: LINDSEY BRIZUELA [facility] [facility] 1940 Planned Disposition: Nursing Facility [facility] Cert Anticipated Discharge Date: Discharge Date: Expected LOS: Initial Reviewer: [email or web address] Initial Review Date: 02/16/2020 Generated: 02/23/20 6:04 pm Comments DCP- Discharge Planning Updated by [email or web address]: Estela Galdamez on 02/23/20 3:[address] PHONE IN ROOM AND SISTER CONNECTED WITH PATIENT DCP- Discharge Planning Updated by [email or web address]: Estela Galdamez on 02/23/20 12:[address] I spoke with Robin (sister) at length about her options. She would like to talk with her sister. I attempted to make arrangements but she does not have a phone in her room. I have placed a work order to get her a phone. She will then speak with Vane, her brother and the patient's son about Hospice and get back with me DCP- Discharge Planning Updated by [email or web address]: Estela Galdamez on 02/23/20 11:[address] I spoke with Ginny at [facility] to see if there was documentation about hospice. She said I would need to speak with the patient and/or her sister. Ginny stated that she is her own decision maker, but her sister pays her bill. She does have a son who is local. I spoke with the patient to see what she would want and she asked to know her options. I tried to explain them to her the best I could, but I do not think she understood. She then said "I don't even know where I am at" I asked her if she has a sister and she answered that appropriately. She did given me permission to call her sister. I called her and left her a message for her to call me back. DCP- Discharge Planning Updated by [email or web address]: Estela Galdamez on 02/17/20 3:[address] Patient Name: LINDSEY BRIZUELA Admission Status: ER Accout number: [id number] Admission Date: 02-16-2020 : 1940 Admission Diagnosis: Attending: ZOYA, Current LOS: 1 Anticipated DC Date: Planned Disposition: Nursing Facility [facility] Primary Insurance: [employer] Discharge Planning Comments: PATIENT IS UNABLE TO ANSWER QUESTIONS, SHE IS A [facility] RESIDENT AT [facility] I SPOKE WITH FAITH AT [facility] AND SHE STATED THAT THE PATIENT IS USUALLY VERY ALERY AND ORIENTED. SHE HAS REFUSED CARE AND THERAPY IN THE PAST, BUT THEY WERE RECENTLY GETTING HER UP TO A NAM CHAIR AND TAKING HER TO THE [facility] FOR MEALS. SHE HAS BEEN THERE 1 YEAR IN A [facility] BED. SHE HAS A SON, CARL BRIZUELA [phone] HE COME OFTEN TO VISIT HER. I HAVE ATTEMPTED TO CALL HIM MULTIPLE TIMES TODAY TO GET CONSENT FROM HIM FOR SURGERY. DR ARGUETA WAS GOING TO TAKE HER TO SURGERY TODAY, BUT SHE IS NOT ABLE TO SIGN HER OWN CONSENTS. CM WILL CONTINUE TO FOLLOW AND ASSIST WITH GETTING AHOLD OF [place] I LEFT VOICE MESSAGES AT 1145 & 1600 Channel Development Director: Estela Galdamez DCPIA - Discharge Planning Initial Assessment Updated by [email or web address]: Estela Galdamez on 02/17/20 4:13 pm * Is the patient Alert and Oriented? No * PCP [facility] * Pharmacy [facility] * Facility Name [facility] * ADLs Total Dependent * List name and contact numbers for known caregivers / representatives who currently or will assist patient after discharge: CARL BRIZUELA (SON) [phone] * Verbal permission to speak to the caregivers and representatives has been obtained from the patient. N/A * Additional services required to return to the preadmission environment? No * Can the patient safely return to the preadmission environment? Yes * Has this patient been hospitalized within the prior 30 days at any hospital? No Last DP export: 02/23/20 12:25 p Patient Name: LINDSEY BRIZUELA Page [phone] at 1704 All edits/amendments must be made on the electronic document DICTATION DATE: 02/23/20 1704 SMALL ANIMAL VETERINARIAN: ROSMERY 02/23/201703 RPT#: [id number] DC DATE: STATUS: ADM IN [facility] [address] [place] [address] END OF REPORT
[2020-02-23 17:06] VITALS: BP 150/74
--- NOTE | 2020-02-23 19:50 | NUR ---
SITTING UP IN BED. CONFUSED. RARELY SPEAKS. VERY SLOW TO RESPOND. RESP EVEN AND NONLABORED. BED ALARM ON FOR PT SAFETY. 1/2NS @ 75 MLHR INFUSING IN RT FOREARM. BILAT FOOT DROP BOOTS IN USE. DRSGS NOTED TO BLE. ELIZABETH CATH PATENT AND DRAINING CLEAR YELLOW URINE. TELEMETRY SHOWS SR WITH RATE OF 80. DRSG TO SACRUM. SR ELEVATED X2. CL IN REACH.
[2020-02-23 20:00] VITALS: BP 155/70
--- NOTE | 2020-02-23 23:00 | NUR ---
RESTING QUIETLY WITH EYES CLOSED. RESP NONLABORED. NO DISTRESS. BED ALARM ON. CL IN REACH.
[2020-02-24] VITALS: BP 134/58
--- NOTE | 2020-02-24 02:15 | NUR ---
LYING IN BED WITH HOB ELEVATED. EYES CLOSED. RESP SHALLOW, NONLABORED. NO DISTRESS. CL IN REACH.
--- NOTE | 2020-02-24 02:49 | NUR ---
BED BATH GIVEN AT THIS TIME PER STAFF X2. COMPLETE LINEN CHANGE. CL IN REACH.
[2020-02-24 04:00] VITALS: BP 146/54
--- NOTE | 2020-02-24 07:05 | NUR ---
PT RESTING IN BED WITH EYES CLOSED. RESP EVEN AND UNLABORED. IV TO LEFT FOREARM WITH 1/2NS @ 75ML/HR INFUSING VIA PUMP. SITE WITHOUT REDNESS OR EDEMA. F/C PATENT TO GRAVITY. DRESSING C/D/I TO SACRAL AREA. BLESSING BOOT IN PLACE TO RIGHT LOWER EXTREMITY AND DRESSING TO LEFT LOWER EXTREMITY. FOOT DROP BOOTS IN PLACE TO BLE. CL WITHIN REACH. ENCOURAGED TO CALL WITH NEEDS. CONTINUE POC
[2020-02-24 08:02] VITALS: BP 144/66
[2020-02-24 08:35] LABS: BASOPHILS 0.4 % (0-2); EOSINOPHILS 2.1 % (0-7); HEMATOCRIT 35.3 % (36.0-48.0); HEMOGLOBIN 11.2 g/dL (12-16); IMMATURE GRANULOCYTES 1.9 % (0-5); LYMPHOCYTES 11.5 % (15-50); MCH 27.8 pg (26.0-34.0); MCHC 31.7 g/dL (31.0-37.0); MCV 87.6 fL (80.0-100.0); MEAN PLATELET VOLUME 9.3 fL (7.4-10.4); MONOCYTES 7.8 % (2-11); NEUTROPHILS 76.3 % (40-80); PLATELET COUNT 280 10x3/uL (130-400); RBC 4.03 10x6/uL (4.00-5.40); RDW 17.6 % (11.5-14.5); WBC 11.2 10x3/uL (4.8-10.8)
[2020-02-24 08:47] LABS: ANION GAP 14.3 mmol/L (8-16); CALCIUM 8.4 mg/dL (8.5-10.1); CARBON DIOXIDE 22.4 mmol/L (21.0-32.0); CREATININE - SERUM 0.9 mg/dL (0.6-1.3); MAGNESIUM - SERUM 1.6 mg/dL (1.8-2.4); POTASSIUM - SERUM 3.7 mmol/L (3.5-5.1)
[2020-02-24 12:06] VITALS: BP 148/54
--- NOTE | 2020-02-24 16:22 | MORECARE ---
CASE MANAGEMENT DISCHARGE SUMMARY PATIENT: LINDSEY BRIZUELA UNIT: [id number] ADM DATE: 02/16/20 AGE: 79 : 40 SEX: F ROOM/BED: D.2204 AUTHOR: RICHARD CENTENO PHYSICIAN: REFERRING PHYSICIAN: VITALIY KENNY MD DATE OF SERVICE: 02/24/20 Discharge Plan Patient Name: LINDSEY BRIZUELA [facility] [facility] 1940 Planned Disposition: Nursing Facility JO[facility] Cert Anticipated Discharge Date: Discharge Date: Expected LOS: Initial Reviewer: [email or web address] Initial Review Date: 02/16/2020 Generated: 02/24/20 5:22 pm Comments DCP- Discharge Planning Updated by [id number]: Estela Galdamez on 02/23/20 3:[address] PHONE IN ROOM AND SISTER CONNECTED WITH PATIENT DCP- Discharge Planning Updated by [id number]: Estela Galdamez on 02/23/20 12:[address] I spoke with Robin (sister) at length about her options. She would like to talk with her sister. I attempted to make arrangements but she does not have a phone in her room. I have placed a work order to get her a phone. She will then speak with Vane, her brother and the patient's son about Hospice and get back with me DCP- Discharge Planning Updated by [id number]: Estela Galdamez on 02/23/20 11:[address] I spoke with Ginny at [place] to see if there was documentation about hospice. She said I would need to speak with the patient and/or her sister. Ginny stated that she is her own decision maker, but her sister pays her bill. She does have a son who is local. I spoke with the patient to see what she would want and she asked to know her options. I tried to explain them to her the best I could, but I do not think she understood. She then said "I don't even know where I am at" I asked her if she has a sister and she answered that appropriately. She did given me permission to call her sister. I called her and left her a message for her to call me back. DCP- Discharge Planning Updated by [id number]: Estela Galdamez on 02/17/20 3:[address] Patient Name: LINDSEY BRIZUELA Admission Status: ER Accout number: [id number] Admission Date: 02-16-2020 : 1940 Admission Diagnosis: Attending: ZOYA, Current LOS: 1 Anticipated DC Date: Planned Disposition: Nursing Facility [facility] Primary Insurance: [employer] Discharge Planning Comments: PATIENT IS UNABLE TO ANSWER QUESTIONS, SHE IS A HALF-WAY RESIDENT AT [facility] I SPOKE WITH FAITH AT [facility] AND SHE STATED THAT THE PATIENT IS USUALLY VERY ALERY AND ORIENTED. SHE HAS REFUSED CARE AND THERAPY IN THE PAST, BUT THEY WERE RECENTLY GETTING HER UP TO A NAM CHAIR AND TAKING HER TO THE CAFE FOR MEALS. SHE HAS BEEN THERE 1 YEAR IN A HALF-WAY BED. SHE HAS A SON, CARL BRIZUELA [phone] HE COME OFTEN TO VISIT HER. I HAVE ATTEMPTED TO CALL HIM MULTIPLE TIMES TODAY TO GET CONSENT FROM HIM FOR SURGERY. DR ARGUETA WAS GOING TO TAKE HER TO SURGERY TODAY, BUT SHE IS NOT ABLE TO SIGN HER OWN CONSENTS. CM WILL CONTINUE TO FOLLOW AND ASSIST WITH GETTING AHOLD OF CARL I LEFT VOICE MESSAGES AT 1145 & 1600 Workers' Compensation Commissioner: Estela Galdamez DCPIA - Discharge Planning Initial Assessment Updated by [id number]: Estela Galdamez on 02/17/20 4:13 pm * Is the patient Alert and Oriented? No * PCP [facility] * Pharmacy [facility] * Facility Name [facility] * ADLs Total Dependent * List name and contact numbers for known caregivers / representatives who currently or will assist patient after discharge: CARL BRIZUELA (SON) [phone] * Verbal permission to speak to the caregivers and representatives has been obtained from the patient. N/A * Additional services required to return to the preadmission environment? No * Can the patient safely return to the preadmission environment? Yes * Has this patient been hospitalized within the prior 30 days at any hospital? No External Providers External Provider: [facility] *(provides inpt [facility] Next Contact Date: Service Request Date: Service Type: Resolution: Reviewer: Comments: Last DP export: 02/23/20 4:04 p Patient Name: LINDSEY BRIZUELA Page [phone] at 1622 All edits/amendments must be made on the electronic document DICTATION DATE: 02/24/201621 ELEVATOR SERVICE MECHANIC: ROSMERY 02/24/201621 RPT#: [id number] DC DATE: STATUS: ADM IN [facility] [address] [place] [address] END OF REPORT
[2020-02-24 16:46] VITALS: BP 142/64
--- NOTE | 2020-02-24 17:31 | MORECARE ---
CASE MANAGEMENT DISCHARGE SUMMARY PATIENT: LINDSEY BRIZUELA UNIT: [id number] ADM DATE: 02/16/20 AGE: 79 : 40 SEX: F ROOM/BED: D.2204 AUTHOR: TARYNDOC PHYSICIAN: REFERRING PHYSICIAN: VITALIY KENNY MD DATE OF SERVICE: 02/24/20 Discharge Plan Patient Name: LINDSEY BRIZUELA [facility] [facility] 1940 Planned Disposition: Nursing Facility [facility] Cert Anticipated Discharge Date: Discharge Date: Expected LOS: Initial Reviewer: [email or web address] Initial Review Date: 02/16/2020 Generated: 02/24/20 6:31 pm Comments DCP- Discharge Planning Updated by [email or web address]: Nubia Whiting on 02/24/20 4:[address] CM spoke with Robin Mckeon and she stated that she wanted patient to go to Hospice. CM gave her [facility] phone number to call and check to see if they will fit her expectations. Robin will call CM back to let her know if [facility] is their choice. Robin did call CM back and they are wanting [facility]. FINA completed. CM faxed records to [facility]. Eldon with [facility] came out and evaluated patient and stated that she is not GIP appropriate. Eldon was going to call patients daughter and give update. Eldon stated that family was considering either [facility] or [facility] for placement. CM will continue to follow and assist as needed with discharge planning needs. DCP- Discharge Planning Updated by [id number]: Estela Galdamez on 02/23/20 3:[address] PHONE IN ROOM AND SISTER CONNECTED WITH PATIENT DCP- Discharge Planning Updated by [email or web address]: Estela Galdamez on 02/23/20 12:[address] I spoke with Robin (sister) at length about her options. She would like to talk with her sister. I attempted to make arrangements but she does not have a phone in her room. I have placed a work order to get her a phone. She will then speak with Vane, her brother and the patient's son about Hospice and get back with me DCP- Discharge Planning Updated by [email or web address]: Estela Galdamez on 02/23/20 11:[address] I spoke with Ginny at [place] to see if there was documentation about hospice. She said I would need to speak with the patient and/or her sister. Ginny stated that she is her own decision maker, but her sister pays her bill. She does have a son who is local. I spoke with the patient to see what she would want and she asked to know her options. I tried to explain them to her the best I could, but I do not think she understood. She then said "I don't even know where I am at" I asked her if she has a sister and she answered that appropriately. She did given me permission to call her sister. I called her and left her a message for her to call me back. DCP- Discharge Planning Updated by [id number]: Estela Galdamez on 02/17/20 3:[address] Patient Name: LINDSEY BRIZUELA Admission Status: ER Accout number: [id number] Admission Date: 02-16-2020 : 1940 Admission Diagnosis: Attending: ZOYA, Current LOS: 1 Anticipated DC Date: Planned Disposition: Nursing Facility [facility] Primary Insurance: [facility] Discharge Planning Comments: PATIENT IS UNABLE TO ANSWER QUESTIONS, SHE IS A [facility] RESIDENT AT [facility] I SPOKE WITH FAITH AT [facility] AND SHE STATED THAT THE PATIENT IS USUALLY VERY ALERY AND ORIENTED. SHE HAS REFUSED CARE AND THERAPY IN THE PAST, BUT THEY WERE RECENTLY GETTING HER UP TO A NAM CHAIR AND TAKING HER TO THE CAFE FOR MEALS. SHE HAS BEEN THERE 1 YEAR IN A [facility] BED. SHE HAS A SON, CARL BRIZUELA [phone] HE COME OFTEN TO VISIT HER. I HAVE ATTEMPTED TO CALL HIM MULTIPLE TIMES TODAY TO GET CONSENT FROM HIM FOR SURGERY. DR ARGUETA WAS GOING TO TAKE HER TO SURGERY TODAY, BUT SHE IS NOT ABLE TO SIGN HER OWN CONSENTS. CM WILL CONTINUE TO FOLLOW AND ASSIST WITH GETTING AHOLD OF CARL I LEFT VOICE MESSAGES AT 1145 & 1600 Gas Flow Regulator: Estela Galdamez DCPIA - Discharge Planning Initial Assessment Updated by [email or web address]: Estela Galdamez on 02/17/20 4:13 pm * Is the patient Alert and Oriented? No * PCP [facility] * [facility] * Facility Name [facility] * ADLs Total Dependent * List name and contact numbers for known caregivers / representatives who currently or will assist patient after discharge: CARL BRIZUELA (SON) [phone] * Verbal permission to speak to the caregivers and representatives has been obtained from the patient. N/A * Additional services required to return to the preadmission environment? No * Can the patient safely return to the preadmission environment? Yes * Has this patient been hospitalized within the prior 30 days at any hospital? No Last DP export: 02/24/20 3:22 p Patient Name: LINDSEY BRIZUELA Page 15030 at 1731 All edits/amendments must be made on the electronic document DICTATION DATE: 02/24/201730 MUSEUM INFORMATICS SPECIALIST: ROSMERY 02/24/201730 RPT#: [id number] DC DATE: STATUS: ADM IN [facility] [address] [place] [address] END OF REPORT
--- NOTE | 2020-02-24 18:01 | MORECARE ---
CASE MANAGEMENT DISCHARGE SUMMARY PATIENT: LINDESY BRIZUELA UNIT: [id number] ADM DATE: 02/16/20 AGE: 79 : 40 SEX: F ROOM/BED: D.2204 AUTHOR: TARYNDOC PHYSICIAN: REFERRING PHYSICIAN: VITALIY KENNY MD DATE OF SERVICE: 02/24/20 Discharge Plan Patient Name: LINDSEY BRIZUELA [facility] : 1940 Planned Disposition: Nursing Facility [facility] Cert Anticipated Discharge Date: Discharge Date: Expected LOS: Initial Reviewer: [email or web address] Initial Review Date: 02/16/2020 Generated: 02/24/20 7:00 pm Comments DCP- Discharge Planning Updated by [id number]: Nubia Whiting on 02/24/20 4:[address] CM spoke with Robin Mckeon and she stated that she wanted patient to go to Hospice. CM gave her [facility] phone number to call and check to see if they will fit her expectations. Robin will call CM back to let her know if [facility] is their choice. Robin did call CM back and they are wanting [facility]. FINA completed. CM faxed records to [facility]. Eldon with [facility] came out and evaluated patient and stated that she is not GIP appropriate. Eldon was going to call patients daughter and give update. Eldon stated that family was considering either [facility] or [facility] for placement. CM will continue to follow and assist as needed with discharge planning needs. DCP- Discharge Planning Updated by [id number]: Estela Galdamez on 02/23/20 3:[address] PHONE IN ROOM AND SISTER CONNECTED WITH PATIENT DCP- Discharge Planning Updated by [email or web address]: Estela Galdamez on 02/23/20 12:[address] I spoke with Robin (sister) at length about her options. She would like to talk with her sister. I attempted to make arrangements but she does not have a phone in her room. I have placed a work order to get her a phone. She will then speak with Vane, her brother and the patient's son about Hospice and get back with me DCP- Discharge Planning Updated by [email or web address]: Estela Galdamez on 02/23/20 11:[address] I spoke with Ginny at [place] to see if there was documentation about hospice. She said I would need to speak with the patient and/or her sister. Ginny stated that she is her own decision maker, but her sister pays her bill. She does have a son who is local. I spoke with the patient to see what she would want and she asked to know her options. I tried to explain them to her the best I could, but I do not think she understood. She then said "I don't even know where I am at" I asked her if she has a sister and she answered that appropriately. She did given me permission to call her sister. I called her and left her a message for her to call me back. DCP- Discharge Planning Updated by [email or web address]: Estela Galdamez on 02/17/20 3:[address] Patient Name: LINDSEY BRIZUELA Admission Status: ER Accout number: [id number] Admission Date: 02-16-2020 : 1940 Admission Diagnosis: Attending: ZOYA, Current LOS: 1 Anticipated DC Date: Planned Disposition: Nursing Facility [facility] Primary Insurance[facility] Discharge Planning Comments: PATIENT IS UNABLE TO ANSWER QUESTIONS, SHE IS A MCC RESIDENT AT [facility] I SPOKE WITH FAITH AT [facility] AND SHE STATED THAT THE PATIENT IS USUALLY VERY ALERY AND ORIENTED. SHE HAS REFUSED CARE AND THERAPY IN THE PAST, BUT THEY WERE RECENTLY GETTING HER UP TO A NAM CHAIR AND TAKING HER TO THE CAFE FOR MEALS. SHE HAS BEEN THERE 1 YEAR IN A [facility] BED. SHE HAS A SON, CARL BRIZUELA [phone] HE COME OFTEN TO VISIT HER. I HAVE ATTEMPTED TO CALL HIM MULTIPLE TIMES TODAY TO GET CONSENT FROM HIM FOR SURGERY. DR ARGUETA WAS GOING TO TAKE HER TO SURGERY TODAY, BUT SHE IS NOT ABLE TO SIGN HER OWN CONSENTS. CM WILL CONTINUE TO FOLLOW AND ASSIST WITH GETTING AHOLD OF CARL I LEFT VOICE MESSAGES AT 1145 & 1600 Strip Mill Operator: Estela Galdamez DCPIA - Discharge Planning Initial Assessment Updated by [id number]: Estela Galdamez on 02/17/20 4:13 pm * Is the patient Alert and Oriented? No * PCP [facility] * [facility] * Facility Name [facility] * ADLs Total Dependent * List name and contact numbers for known caregivers / representatives who currently or will assist patient after discharge: CARL BRIZUELA (SON) [phone] * Verbal permission to speak to the caregivers and representatives has been obtained from the patient. N/A * Additional services required to return to the preadmission environment? No * Can the patient safely return to the preadmission environment? Yes * Has this patient been hospitalized within the prior 30 days at any hospital? No Last DP export: 02/24/20 4:31 p Patient Name: LINDSEY BRIZUELA Page [phone] at 1801 All edits/amendments must be made on the electronic document DICTATION DATE: 02/24/201799 WELDER TECH: ROSMERY 02/24/201799 RPT#: [id number] DC DATE: STATUS: ADM IN [facility] [address] [place] [address] END OF REPORT
[2020-02-24 20:00] VITALS: BP 132/54
--- NOTE | 2020-02-24 20:00 | NUR ---
PATIENT RESTING IN BED WATCHING TV. NO S/S OF ACUTE DISTRESS. NO C/O AT THIS TIME. PATIENT HAS IV IN LEFT FOREARM, 1/2 NORMAL SALINE. IV IS PATENT WITHOUT REDNESS, SWELLING, OR TENDERNESS. PATIENT HAS TELEMETRY: 99 SINUS. PATIENT HAS INCISION ON RECTUM FROM I&D OF ABSCESS, DRESSING C/D/I. PATIENT HAS DRESSING ON LEFT LEG, DRESSING C/D/I. PATIENT HAS BLESSING BOOT ON RIGHT LEG. PATIENT HAS ELIZABETH, PATIENT IS INCONTNIENT OF BOWEL. PATIENT IS ASSINIBOINE AND SIOUX. BED ALARM ON. CALL LIGHT WITHIN REACH. WILL CONTINUE TO MONITOR.
[2020-02-25] VITALS: BP 126/50
[2020-02-25 04:00] VITALS: BP 106/45
--- NOTE | 2020-02-25 04:19 | NUR ---
I have reviewed this patient and I concur with the Shift Assessment completed by the Licensed Practical Nurse today this shift.
--- NOTE | 2020-02-25 07:02 | NUR ---
PT RESTING IN BED WITH EYES CLOSED. OPENS EYES SPONTANEOUSLY STAFF ENTERS ROOM. RESP EVEN AND UNLABORED. PT DENIES PAIN AT THIS TIME. IV TO LEFT FOREARM WITH 1/2 NS @ 75ML/HR INFUSING VIA PUMP. SITE WITHOUT REDNESS OR EDEMA. DENIES FURTHER NEEDS AT THIS TIME. CL WITHIN REACH. CONTINUE POC
[2020-02-25 09:45] VITALS: BP 121/47
[2020-02-25 13:53] VITALS: BP 158/65
--- NOTE | 2020-02-25 14:30 | NUR ---
UNNA BOOT CHANGED ON RIGHT LOWER LEG. PT TOLERATED WELL.
[2020-02-25 17:08] LABS: AEROBE ID Final report (())
[2020-02-25 18:10] VITALS: BP 143/52
[2020-02-25 20:00] VITALS: BP 141/66
--- NOTE | 2020-02-25 20:00 | NUR ---
PATIENT RESTING IN BED WATCHING TV. NO S/S OF ACUTE DISTRESS. NO C/O AT THIS TIME. PATIENT APPEARS PERKIER THAN YESTERDAY, AND SAYS "I HAD A GOOD DAY TODAY". PATIENT HAS IV IN LEFT FOREARM, 1/2 NORMAL SALINE @ 75 ML/HR. IV IS PATENT WITHOUT REDNESS, SWELLING, OR TENDERNESS. PATIENT HAS TELEMETRY: 74 NORMAL SINUS WITH PAC. PATIENT HAS DRESSING ON BUTTOCKS FROM PREVIOUS SURGERY ON ABSCESS ON THE RECTUM, DRESSING C/D/I. PATIENT HAS DRESSING ON LEFT LEG, C/D/I. PATIENT HAS UNNA BOOT ON RIGHT LEG. CALL LIGHT WITHIN REACH. WILL CONTINUE TO MONITOR.
[2020-02-26] VITALS: BP 138/69
--- NOTE | 2020-02-26 00:27 | NUR ---
I have reviewed this patient and I concur with the Shift Assessment completed by the Licensed Practical Nurse today this shift.
[2020-02-26 04:00] VITALS: BP 140/72
--- NOTE | 2020-02-26 07:33 | NUR ---
AWAKE AND ALERT. ORIENTED X 3. NO C/O AT THIS TIME. LUNGS ARE CLEAR BILATERALLY, NO COUGH NOTED. SKIN IS INTACT WITHOUT REDNESS EXCEPT WOUND TO RECTAL AREA WHICH HAS A DRY INTACT DRESSING IN PLACE. IV TO RIGHT FOREARM IS PATENT WITHOUT REDNESS AT INSERTION SITE. ELIZABETH PATENT WITH CLEAR YELLOW URINE. DENIES NEEDS.
[2020-02-26 08:02] VITALS: BP 144/52
--- NOTE | 2020-02-26 09:00 | NUR ---
TOOK AM MEDS WITH ASSIST ONE AT A TIME. ATE A FEW BITES OF BREAKFAST. WAS AFRAID OF EATING THE BREAD DUE TO GLUTEN ALLERGY. REFUSED OFFER OF ALTERNATIVE FOODS.
--- NOTE | 2020-02-26 09:29 | MORECARE ---
CASE MANAGEMENT DISCHARGE SUMMARY PATIENT: LINDSEY BRIZUELA UNIT: [id number] ADM DATE: 02/16/20 AGE: 79 : 40 SEX: F ROOM/BED: D.2204 AUTHOR: RICHARD CENTENO PHYSICIAN: REFERRING PHYSICIAN: VITALIY KENNY MD DATE OF SERVICE: 02/26/20 Discharge Plan Patient Name: LINDSEY BRIZUELA [facility] [facility] 1940 Planned Disposition: Nursing Facility [facility] Cert Anticipated Discharge Date: Discharge Date: Expected LOS: Initial Reviewer: [email or web address] Initial Review Date: 02/16/2020 Generated: 02/26/20 10:29 am Comments DCP- Discharge Planning Updated by [id number]: Estela Galdamez on 02/26/20 8:[address] LATE ENTRY: 02/25/20 @ 1135 Spoke with Robin patient's sister and she stated that she had spoken to Ginny at [place] and would like to proceed with [facility]. Her first choice is [facility] and thee [facility] I called [facility] and spoke with Letty, she stated that a semi private room would cost $7400.00 per month and that she will need a NEG COVID test prior to admission to the facility. She said that insurance would cover the Hospice related needs. I also called [facility] and left a message with Beatrice to call me back. Letty at [facility] [facility] gave me a Private home in [facility] that is 1/2 the cost of [facility]. She stated that the lady that run's it is Anne Marie her number is [phone]. I will call Robin and update her on what I have found out. DCP- Discharge Planning Updated by [id number]: Nubia Whiting on 02/24/20 4:[address] CM spoke with Robin Mckeon and she stated that she wanted patient to go to Hospice. MUKUND gave her [facility] phone number to call and check to see if they will fit her expectations. Robin will call MUKUND back to let her know if [facility] is their choice. Robin did call [facility] back and they are wanting [facility]. FINA completed. CM faxed records to [facility]. Eldon with [facility] came out and evaluated patient and stated that she is not GIP appropriate. Eldon was going to call patients daughter and give update. Eldon stated that family was considering either [facility] or [facility] for placement. CM will continue to follow and assist as needed with discharge planning needs. DCP- Discharge Planning Updated by [email or web address]: Estela Galdamez on 02/23/20 3:[address] PHONE IN ROOM AND SISTER CONNECTED WITH PATIENT DCP- Discharge Planning Updated by [id number]: Estela Galdamez on 02/23/20 12:[address] I spoke with Robin (sister) at length about her options. She would like to talk with her sister. I attempted to make arrangements but she does not have a phone in her room. I have placed a work order to get her a phone. She will then speak with Vane, her brother and the patient's son about Hospice and get back with me DCP- Discharge Planning Updated by [id number]: Estela Galdamez on 02/23/20 11:[address] I spoke with Ginny at [place] to see if there was documentation about hospice. She said I would need to speak with the patient and/or her sister. Ginny stated that she is her own decision maker, but her sister pays her bill. She does have a son who is local. I spoke with the patient to see what she would want and she asked to know her options. I tried to explain them to her the best I could, but I do not think she understood. She then said "I don't even know where I am at" I asked her if she has a sister and she answered that appropriately. She did given me permission to call her sister. I called her and left her a message for her to call me back. DCP- Discharge Planning Updated by [id number]: Estela Galdamez on 02/17/20 3:[address] Patient Name: LINDSEY BRIZUELA Admission Status: ER Accout number: [id number] Admission Date: 02-16-2020 : 1940 Admission Diagnosis: Attending: ZOYA, Current LOS: 1 Anticipated DC Date: Planned Disposition: Nursing Facility [facility] Primary Insurance: [facility] Discharge Planning Comments: PATIENT IS UNABLE TO ANSWER QUESTIONS, SHE IS A USP RESIDENT AT [facility] I SPOKE WITH FAITH AT [facility] AND SHE STATED THAT THE PATIENT IS USUALLY VERY ALERY AND ORIENTED. SHE HAS REFUSED CARE AND THERAPY IN THE PAST, BUT THEY WERE RECENTLY GETTING HER UP TO A NAM CHAIR AND TAKING HER TO THE CAFE FOR MEALS. SHE HAS BEEN THERE 1 YEAR IN A [facility]P BED. SHE HAS A SON, CARL BRIZUELA [phone] HE COME OFTEN TO VISIT HER. I HAVE ATTEMPTED TO CALL HIM MULTIPLE TIMES TODAY TO GET CONSENT FROM HIM FOR SURGERY. DR ARGUETA WAS GOING TO TAKE HER TO SURGERY TODAY, BUT SHE IS NOT ABLE TO SIGN HER OWN CONSENTS. CM WILL CONTINUE TO FOLLOW AND ASSIST WITH GETTING AHOLD OF CARL I LEFT VOICE MESSAGES AT 1145 & 1600 Establishment Guide: Estela Galdamez DCPIA - Discharge Planning Initial Assessment Updated by [id number]: Estela Galdamez on 02/17/20 4:13 pm * Is the patient Alert and Oriented? No * PCP [facility] * Pharmacy [facility] * Facility Name [facility] * ADLs Total Dependent * List name and contact numbers for known caregivers / representatives who currently or will assist patient after discharge: CARL BRIZUELA (SON) [phone] * Verbal permission to speak to the caregivers and representatives has been obtained from the patient. N/A * Additional services required to return to the preadmission environment? No * Can the patient safely return to the preadmission environment? Yes * Has this patient been hospitalized within the prior 30 days at any hospital? No Last DP export: 02/24/20 5:01 p Patient Name: LINDSEY BRIZUELA Page 22213 at 0929 All edits/amendments must be made on the electronic document DICTATION DATE: 02/26/20928 WATER RESOURCES PROGRAM DIRECTOR: ROSMERY 02/26/20928 RPT#: [id number] DC DATE: STATUS: ADM IN [facility] [address] [place] [address] END OF REPORT
--- NOTE | 2020-02-26 11:30 | NUR ---
IV TO LEFT FOREARM IS LEAKING. D/C WITH CATHETER INTACT. RESITED TO RIGHT FOREARM AFTER ONE ATTEMPT WITH 20 G. TOLERATED WITHOUT C/O. DENIES NEEDS.
--- NOTE | 2020-02-26 13:00 | NUR ---
ATE ALL OF LUNCH. DENIES NEEDS.
[2020-02-26 13:58] VITALS: BP 156/63
--- NOTE | 2020-02-26 16:16 | NUR ---
RESTING QUIETLY IN BED. DENIES NEEDS.
[2020-02-26 18:13] VITALS: BP 142/70
[2020-02-26 20:00] VITALS: BP 167/65
--- NOTE | 2020-02-26 20:13 | NUR ---
awake,alert.oriented to self only. resp even and unalbored. no distress noted. iv to lfa intact without redness or edema noted. marion patent and draining concentrated urine. fluids encouraged. cl in reach. fall precautions in place.
[2020-02-27] VITALS: BP 149/68
[2020-02-27 04:00] VITALS: BP 158/64
--- NOTE | 2020-02-27 04:28 | NUR ---
I have reviewed this patient and I concur with the Shift Assessment completed by the Licensed Practical Nurse today this shift.
--- NOTE | 2020-02-27 08:00 | NUR ---
ASSESSMENT PER FLOW SHEET. PATIENT IS WITHOUT DISTRESS.FALL PREVENTION IN PLACE WITH BED ALARM.DOOR OPEN
[2020-02-27 09:50] VITALS: BP 180/65
--- NOTE | 2020-02-27 13:36 | MORECARE ---
CASE MANAGEMENT DISCHARGE SUMMARY PATIENT: LINDSEY BRIZUELA UNIT: [id number] ADM DATE: 02/16/20 AGE: 79 : 40 SEX: F ROOM/BED: D.2204 AUTHOR: RICHARD CENTENO PHYSICIAN: REFERRING PHYSICIAN: VITALIY KENNY MD DATE OF SERVICE: 02/27/20 Discharge Plan Patient Name: LINDSEY BRIZUELA [facility] [facility] 1940 Planned Disposition: Nursing Facility [facility] Cert Anticipated Discharge Date: Discharge Date: Expected LOS: Initial Reviewer: [email or web address] Initial Review Date: 02/16/2020 Generated: 02/27/20 2:35 pm Comments DCP- Discharge Planning Updated by [email or web address]: Estela Galdamez on 02/27/20 12:[address] Spoke with Robin ( patients sister) to let her know about [facility] and that I have not heard back from [facility], but I would try them again in the AM. She will [facility] for more details. DCP- Discharge Planning Updated by [id number]: Estela Galdamez on 02/26/20 8:[address] LATE ENTRY: 02/25/20 @ 1135 Spoke with Robin patient's sister and she stated that she had spoken to Ginny at [facility] and would like to proceed with [facility]. Her first choice is [facility] and thee second choice is [facility]. I called [facility] and spoke with Letty, she stated that a semi private room would cost $7400.00 per month and that she will need a NEG COVID test prior to admission to the facility. She said that insurance would cover the Hospice related needs. I also called [facility] and left a message with Beatrice to call me back. Letty at [facility] gave me a Private home in [facility] that is 1/2 the cost of [facility]. She stated that the lady that run's it is Anne Marie her number is [phone]. I will call Robin and update her on what I have found out. DCP- Discharge Planning Updated by [id number]: Nubia Whiting on 02/24/20 4:[address] CM spoke with Robin Mckeon and she stated that she wanted patient to go to Hospice. CM gave her [facility] phone number to call and check to see if they will fit her expectations. Robin will call CM back to let her know if [facility] is their choice. Robin did call CM back and they are wanting [facility]. FINA completed. CM faxed records to [facility]. Eldon with [facility] came out and evaluated patient and stated that she is not GIP appropriate. Eldon was going to call patients daughter and give update. Eldon stated that family was considering either [facility] or [facility] for placement. CM will continue to follow and assist as needed with discharge planning needs. DCP- Discharge Planning Updated by [id number]: Estela Galdamez on 02/23/20 3:[address] PHONE IN ROOM AND SISTER CONNECTED WITH PATIENT DCP- Discharge Planning Updated by [id number]: Estela Galdamez on 02/23/20 12:[address] I spoke with Robin (sister) at length about her options. She would like to talk with her sister. I attempted to make arrangements but she does not have a phone in her room. I have placed a work order to get her a phone. She will then speak with Vane, her brother and the patient's son about Hospice and get back with me DCP- Discharge Planning Updated by [id number]: Estela Galdamez on 02/23/20 11:[address] I spoke with Ginny at [facility] to see if there was documentation about hospice. She said I would need to speak with the patient and/or her sister. Ginny stated that she is her own decision maker, but her sister pays her bill. She does have a son who is local. I spoke with the patient to see what she would want and she asked to know her options. I tried to explain them to her the best I could, but I do not think she understood. She then said "I don't even know where I am at" I asked her if she has a sister and she answered that appropriately. She did given me permission to call her sister. I called her and left her a message for her to call me back. DCP- Discharge Planning Updated by [id number]: Estela Galdamez on 02/17/20 3:[address] Patient Name: LINDSEY BRIZUELA Admission Status: ER Accout number: [id number] Admission Date: 02-16-2020 : 1940 Admission Diagnosis: Attending: ZOYA, Current LOS: 1 Anticipated DC Date: Planned Disposition: Nursing Facility [facility] Discharge Planning Comments: PATIENT IS UNABLE TO ANSWER QUESTIONS, SHE IS A LONG-TERM RESIDENT AT [facility] I SPOKE WITH FAITH AT [facility] AND SHE STATED THAT THE PATIENT IS USUALLY VERY ALERY AND ORIENTED. SHE HAS REFUSED CARE AND THERAPY IN THE PAST, BUT THEY WERE RECENTLY GETTING HER UP TO A NAM CHAIR AND TAKING HER TO THE [facility] FOR MEALS. SHE HAS BEEN THERE 1 YEAR IN A LONG-TERM BED. SHE HAS A SON, CARL BRIZUELA [phone] HE COME OFTEN TO VISIT HER. I HAVE ATTEMPTED TO CALL HIM MULTIPLE TIMES TODAY TO GET CONSENT FROM HIM FOR SURGERY. DR ARGUETA WAS GOING TO TAKE HER TO SURGERY TODAY, BUT SHE IS NOT ABLE TO SIGN HER OWN CONSENTS. CM WILL CONTINUE TO FOLLOW AND ASSIST WITH GETTING AHOLD OF CARL I LEFT VOICE MESSAGES AT 1145 & 1600 Director Of Product Development: Estela Galdamez DCPIA - Discharge Planning Initial Assessment Updated by [email or web address]: Estela Galdamez on 02/17/20 4:13 pm * Is the patient Alert and Oriented? No * PCP [facility] * Pharmacy [facility] * Facility Name [facility] * ADLs Total Dependent * List name and contact numbers for known caregivers / representatives who currently or will assist patient after discharge: CARL BRIZUELA (SON) [phone] * Verbal permission to speak to the caregivers and representatives has been obtained from the patient. N/A * Additional services required to return to the preadmission environment? No * Can the patient safely return to the preadmission environment? Yes * Has this patient been hospitalized within the prior 30 days at any hospital? No Last DP export: 02/26/20 8:29 a Patient Name: LINDSEY BRIZUELA Page [phone] at 1336 All edits/amendments must be made on the electronic document DICTATION DATE: 02/27/20 1333 GLOBE TESTER: ROSMERY 02/27/20 1335 RPT#: [id number] DC DATE: STATUS: ADM IN [facility] [address] [place] [address] END OF REPORT
[2020-02-27 13:40] VITALS: BP 133/54
[2020-02-27 16:00] VITALS: BP 145/57
--- NOTE | 2020-02-27 19:30 | NUR ---
PATIENT RESTING IN BED WITH EYES CLOSED AND NO S/S OF DISTRESS. BED IN LOWEST POSITION AND CALL LIGHT WITHIN REACH. WILL CONTINUE TO MONITOR.
[2020-02-27 20:00] VITALS: BP 137/54
--- NOTE | 2020-02-27 21:01 | NUR ---
ADMINISTERED MEDS PER ORDERS. FED PATIENT APROX 25% OF DINNER TRAY. I ALSO OFFERED THE PATIENT ONE OF HER ENSURE, HOWEVER, SHE REFUSED. REPOSITIONED PATIENT IN BED. PATIENT DENIES OTHER NEEDS AT THIS TIME. BED IN LOWEST POSITION AND CALL LIGHT WITHIN REACH. ENCOURAGED THE PATIENT TO CALL IF SHE HAS NEEDS. WILL CONTINUE TO MONITOR.
[2020-02-28] VITALS: BP 146/89
--- NOTE | 2020-02-28 08:33 | MORECARE ---
CASE MANAGEMENT DISCHARGE SUMMARY PATIENT: LINDSEY BRIZUELA UNIT: [id number] ADM DATE: 02/16/20 AGE: 79 : 40 SEX: F ROOM/BED: D.2204 AUTHOR: RICHARD CENTENO PHYSICIAN: REFERRING PHYSICIAN: VITALIY KENNY MD DATE OF SERVICE: 02/28/20 Discharge Plan Patient Name: LINDSEY BRIZUELA [facility] [facility] 1940 Planned Disposition: Nursing Facility [facility] Cert Anticipated Discharge Date: Discharge Date: Expected LOS: Initial Reviewer: [email or web address] Initial Review Date: 02/16/2020 Generated: 02/28/20 9:33 am Comments DCP- Discharge Planning Updated by [id number]: Estela Galdamez on 02/28/20 7:[address] spoke with Karolina with [facility] to see if the patient could be placed in their GIP for Respite till she can get penitentiary care somewhere. ([facility]) Karolina is going to check and call me back DCP- Discharge Planning Updated by [id number]: Estela Galdamez on 02/27/20 12:[address] Spoke with Robin ( patients sister) to let her know about [facility] and that I have not heard back from [facility], but I would try them again in the AM. She will call Nel At [facility] tomorrow for more details. DCP- Discharge Planning Updated by [id number]: Estela Galdamez on 02/26/20 8:[address] LATE ENTRY: 02/25/20 @ 1135 Spoke with Robin patient's sister and she stated that she had spoken to Ginny at [facility] and would like to proceed with [facility]. Her first choice is [facility] and thee second choice is [facility]. I called [facility] and spoke with Letty, she stated that a semi private room would cost $7400.00 per month and that she will need a NEG COVID test prior to admission to the facility. She said that insurance would cover the Hospice related needs. I also called [facility] and left a message with Beatrice to call me back. Letty at [facility] gave me a Private home in [place] that is 1/2 the cost of [facility]. She stated that the lady that run's it is Anne Marie her number is [phone]. I will call Robin and update her on what I have found out. DCP- Discharge Planning Updated by [email or web address]: Nubia Whiting on 02/24/20 4:[address] CM spoke with Robin Mckeon and she stated that she wanted patient to go to Hospice. CM gave her [facility] phone number to call and check to see if they will fit her expectations. Robin will call CM back to let her know if [facility] is their choice. Robin did call CM back and they are wanting [facility]. FINA completed. CM faxed records to [facility]. Eldon with [facility] came out and evaluated patient and stated that she is not GIP appropriate. Eldon was going to call patients daughter and give update. Eldon stated that family was considering either [facility] or [facility] for placement. CM will continue to follow and assist as needed with discharge planning needs. DCP- Discharge Planning Updated by [id number]: Estela Galdamez on 02/23/20 3:[address] PHONE IN ROOM AND SISTER CONNECTED WITH PATIENT DCP- Discharge Planning Updated by [id number]: Estela Galdamez on 02/23/20 12:[address] I spoke with Robin (sister) at length about her options. She would like to talk with her sister. I attempted to make arrangements but she does not have a phone in her room. I have placed a work order to get her a phone. She will then speak with Vane, her brother and the patient's son about Hospice and get back with me DCP- Discharge Planning Updated by [id number]: Estela Galdamez on 02/23/20 11:[address] I spoke with Ginny at [facility] to see if there was documentation about hospice. She said I would need to speak with the patient and/or her sister. Ginny stated that she is her own decision maker, but her sister pays her bill. She does have a son who is local. I spoke with the patient to see what she would want and she asked to know her options. I tried to explain them to her the best I could, but I do not think she understood. She then said "I don't even know where I am at" I asked her if she has a sister and she answered that appropriately. She did given me permission to call her sister. I called her and left her a message for her to call me back. DCP- Discharge Planning Updated by [id number]: Estela Rudolph on 02/17/20 3:[address] Patient Name: LINDSEY BRIZUELA Admission Status: ER Accout number: [id number] Admission Date: 02-16-2020 : 1940 Admission Diagnosis: Attending: ZOYA, Current LOS: 1 Anticipated DC Date: Planned Disposition: Nursing Facility [facility] Primary Insurance: [employer] Discharge Planning Comments: PATIENT IS UNABLE TO ANSWER QUESTIONS, SHE IS A LONG-TERM RESIDENT AT [facility] I SPOKE WITH FAITH AT [facility] AND SHE STATED THAT THE PATIENT IS USUALLY VERY ALERY AND ORIENTED. SHE HAS REFUSED CARE AND THERAPY IN THE PAST, BUT THEY WERE RECENTLY GETTING HER UP TO A NAM CHAIR AND TAKING HER TO THE [facility] FOR MEALS. SHE HAS BEEN THERE 1 YEAR IN A LONG-TERM BED. SHE HAS A SON, CARL BRIZUELA [phone] HE COME OFTEN TO VISIT HER. I HAVE ATTEMPTED TO CALL HIM MULTIPLE TIMES TODAY TO GET CONSENT FROM HIM FOR SURGERY. DR ARGUETA WAS GOING TO TAKE HER TO SURGERY TODAY, BUT SHE IS NOT ABLE TO SIGN HER OWN CONSENTS. CM WILL CONTINUE TO FOLLOW AND ASSIST WITH GETTING AHOLD OF CARL I LEFT VOICE MESSAGES AT 1145 & 1600 Mailroom Messenger: Estela Galdamez DCPIA - Discharge Planning Initial Assessment Updated by [email or web address]: Estela Galdamez on 02/17/20 4:13 pm * Is the patient Alert and Oriented? No * PCP [facility] * Pharmacy [facility] * Facility Name [facility] * ADLs Total Dependent * List name and contact numbers for known caregivers / representatives who currently or will assist patient after discharge: CARL BRIZUELA (SON) [phone] * Verbal permission to speak to the caregivers and representatives has been obtained from the patient. N/A * Additional services required to return to the preadmission environment? No * Can the patient safely return to the preadmission environment? Yes * Has this patient been hospitalized within the prior 30 days at any hospital? No Last DP export: 02/27/20 12:35 p Patient Name: LINDSEY BRIZUELA Page [id number] at 0833 All edits/amendments must be made on the electronic document DICTATION DATE: 02/28/20832 MAT SEWER: ROSMERY 02/28/20832 RPT#: [id number] DC DATE: STATUS: ADM IN [facility] [address] [place] [address] END OF REPORT
[2020-02-28 09:05] VITALS: BP 153/69
--- NOTE | 2020-02-28 09:05 | MORECARE ---
CASE MANAGEMENT DISCHARGE SUMMARY PATIENT: LINDSEY BRIZUELA UNIT: [id number] ADM DATE: 02/16/20 AGE: 79 : 40 SEX: F ROOM/BED: D.2204 AUTHOR: RICHARD CENTENO PHYSICIAN: REFERRING PHYSICIAN: VITALIY KENNY MD DATE OF SERVICE: 02/28/20 Discharge Plan Patient Name: LINDSEY BRIZUELA [facility] [facility] 1940 Planned Disposition: Nursing Facility [facility] Cert Anticipated Discharge Date: Discharge Date: Expected LOS: Initial Reviewer: [email or web address] Initial Review Date: 02/16/2020 Generated: 02/28/20 10:04 am Comments DCP- Discharge Planning Updated by [email or web address]: Estela Galdamez on 02/28/20 7:[address] [facility] DCP- Discharge Planning Updated by [id number]: Estela Galdamez on 02/28/20 7:[address] spoke with Karolina with [facility] to see if the patient could be placed in their GIP for Respite till she can get manager intermediate care somewhere. ([facility]) Karolina is going to check and call me back DCP- Discharge Planning Updated by [id number]: Estela Galdamez on 02/27/20 12:[address] Spoke with Robin ( patients sister) to let her know about [facility] and that I have not heard back from [facility], but I would try them again in the AM. She will call Nel At [facility] tomorrow for more details. DCP- Discharge Planning Updated by [id number]: Estela Galdamez on 02/26/20 8:[address] LATE ENTRY: 02/25/20 @ 1135 Spoke with Robin patient's sister and she stated that she had spoken to Ginny at [facility] and would like to proceed with [facility]. Her first choice is [facility] and thee second choice is [facility]. I called [facility] and spoke with Letty, she stated that a semi private room would cost $7400.00 per month and that she will need a NEG COVID test prior to admission to the facility. She said that insurance would cover the Hospice related needs. I also called [facility] and left a message with Beatrice to call me back. Letty at [facility] gave me a Private home in [facility] that is 1/2 the cost of [facility]. She stated that the lady that run's it is Anne Marie her number is [phone]. I will call Robin and update her on what I have found out. DCP- Discharge Planning Updated by [id number]: Nubia Whiting on 02/24/20 4:[address] CM spoke with Robin Mckeon and she stated that she wanted patient to go to Hospice. CM gave her [facility] phone number to call and check to see if they will fit her expectations. Robin will call CM back to let her know if [facility] is their choice. Robin did call CM back and they are wanting [facility]. FINA completed. CM faxed records to [facility]. Eldon with [facility] came out and evaluated patient and stated that she is not GIP appropriate. Eldon was going to call patients daughter and give update. Eldon stated that family was considering either [facility] or [facility] for placement. CM will continue to follow and assist as needed with discharge planning needs. DCP- Discharge Planning Updated by [id number]: Estela Galdamez on 02/23/20 3:[address] PHONE IN ROOM AND SISTER CONNECTED WITH PATIENT DCP- Discharge Planning Updated by [id number]: Estela Galdamez on 02/23/20 12:[address] I spoke with Robin (sister) at length about her options. She would like to talk with her sister. I attempted to make arrangements but she does not have a phone in her room. I have placed a work order to get her a phone. She will then speak with Vane, her brother and the patient's son about Hospice and get back with me DCP- Discharge Planning Updated by [email or web address]: Estela Galdamez on 02/23/20 11:[address] I spoke with Ginny at [facility] to see if there was documentation about hospice. She said I would need to speak with the patient and/or her sister. Ginny stated that she is her own decision maker, but her sister pays her bill. She does have a son who is local. I spoke with the patient to see what she would want and she asked to know her options. I tried to explain them to her the best I could, but I do not think she understood. She then said "I don't even know where I am at" I asked her if she has a sister and she answered that appropriately. She did given me permission to call her sister. I called her and left her a message for her to call me back. DCP- Discharge Planning Updated by [id number]: Estela Galdamez on 02/17/20 3:[address] Patient Name: LINDSEY BRIZUELA Admission Status: ER Accout number: [id number] Admission Date: 02-16-2020 : 1940 Admission Diagnosis: Attending: ZOYA, Current LOS: 1 Anticipated DC Date: Planned Disposition: Nursing Facility [facility] Primary Insurance: [employer] Discharge Planning Comments: PATIENT IS UNABLE TO ANSWER QUESTIONS, SHE IS A [facility] RESIDENT AT [facility] I SPOKE WITH FAITH AT [facility] AND SHE STATED THAT THE PATIENT IS USUALLY VERY ALERY AND ORIENTED. SHE HAS REFUSED CARE AND THERAPY IN THE PAST, BUT THEY WERE RECENTLY GETTING HER UP TO A NAM CHAIR AND TAKING HER TO THE [facility] FOR MEALS. SHE HAS BEEN THERE 1 YEAR IN A [facility] BED. SHE HAS A SON, CARL BRIZUELA [phone] HE COME OFTEN TO VISIT HER. I HAVE ATTEMPTED TO CALL HIM MULTIPLE TIMES TODAY TO GET CONSENT FROM HIM FOR SURGERY. DR ARGUETA WAS GOING TO TAKE HER TO SURGERY TODAY, BUT SHE IS NOT ABLE TO SIGN HER OWN CONSENTS. CM WILL CONTINUE TO FOLLOW AND ASSIST WITH GETTING AHOLD OF CARL I LEFT VOICE MESSAGES AT 1145 & 1600 Commissioning Specialist: Estela Galdamez DCPIA - Discharge Planning Initial Assessment Updated by [id number]: Estela Galdamez on 02/17/20 4:13 pm * Is the patient Alert and Oriented? No * PCP [facility] * Pharmacy [facility] * Facility Name [facility] * ADLs Total Dependent * List name and contact numbers for known caregivers / representatives who currently or will assist patient after discharge: CARL BRIZUELA (SON) [phone] * Verbal permission to speak to the caregivers and representatives has been obtained from the patient. N/A * Additional services required to return to the preadmission environment? No * Can the patient safely return to the preadmission environment? Yes * Has this patient been hospitalized within the prior 30 days at any hospital? No Last DP export: 02/28/20 7:33 a Patient Name: LINDSEY BRIZUELA Page 42738 at 0905 All edits/amendments must be made on the electronic document DICTATION DATE: 02/28/20903 SUBSTATION WIREMAN: ROSMERY 02/28/20903 RPT#: [id number] DC DATE: STATUS: ADM IN [facility] [address] [place] [address] END OF REPORT
--- NOTE | 2020-02-28 10:10 | NUR ---
PT RESTING IN BED WITH EYES CLOSED. RESP EVEN AND UNLABORED AT THIS TIME. PT DENIES PAIN AT THIS TIME. IV TO LEFT FOREARM WITH NS @ 75ML/HR INFUSING VIA PUMP. SITE WITHOUT REDNESS OR EDEMA. ADMINISTERED AM MEDICATIONS IN APPLE SAUCE WITH BOOST DRINK. PT DENIED WISHES TO CONSUME BREAKFAST EVEN WITH MUCH ENCOURAGEMENT. DENIES FURTHER NEEDS AT THIS TIME. CL WITHIN REACH. ENCOURAGED TO CALL WITH NEEDS. CONTINUE POC
--- NOTE | 2020-02-28 10:48 | NUR ---
Nutrition follow-up: Diet: Regular as tolerated PO intake ~25% of some meals Labs reviewed No new wt Please wt Pt not meeting estimated nutritional needs for wound healing at this time. Pt would benefit from PEG tube placement and nutrition support started if medically feasible. RDN following.
--- NOTE | 2020-02-28 11:53 | MORECARE ---
CASE MANAGEMENT DISCHARGE SUMMARY PATIENT: LINDSEY BRIZUELA UNIT: [id number] ADM DATE: 02/16/20 AGE: 79 : 40 SEX: F ROOM/BED: D.2204 AUTHOR: TARYNDOC PHYSICIAN: REFERRING PHYSICIAN: VITALIY KENNY MD DATE OF SERVICE: 02/28/20 Discharge Plan Patient Name: LINDSEY BRIZUELA [facility] [facility] 1940 Planned Disposition: Nursing Facility [facility] Cert Anticipated Discharge Date: Discharge Date: Expected LOS: Initial Reviewer: [email or web address] Initial Review Date: 02/16/2020 Generated: 02/28/20 12:53 pm Comments DCP- Discharge Planning Updated by [id number]: Estela Galdamez on 02/28/20 10:[address] [place] with [facility] here to assess her wound. DCP- Discharge Planning Updated by [email or web address]: Estela Galdamez on 02/28/20 7:[address] sent wound note to [facility] DCP- Discharge Planning Updated by [id number]: Estela Galdamez on 02/28/20 7:[address] spoke with Karolina with [facility] to see if the patient could be placed in their GIP for Respite till she can get moth exterminator care somewhere. [facility]) Karolina is going to check and call me back DCP- Discharge Planning Updated by [id number]: Estela Galdamez on 02/27/20 12:[address] Spoke with Robin ( patients sister) to let her know about [facility] and that I have not heard back from [facility], but I would try them again in the AM. She will call Nel At [facility] tomorrow for more details. DCP- Discharge Planning Updated by [id number]: Estela Galdamez on 02/26/20 8:[address] LATE ENTRY: 02/25/20 @ 1135 Spoke with Robin patient's sister and she stated that she had spoken to Ginny at [facility] and would like to proceed with [facility]. Her first choice is [facility] and thee second choice is [facility]. I called [facility] and spoke with Letty, she stated that a semi private room would cost $7400.00 per month and that she will need a NEG COVID test prior to admission to the facility. She said that insurance would cover the Hospice related needs. I also called [facility] and left a message with Beatrice to call me back. Letty at [facility] gave me a Private home in [facility] that is 1/2 the cost of [facility]. She stated that the lady that run's it is Anne Marie her number is [phone]. I will call Robin and update her on what I have found out. DCP- Discharge Planning Updated by [id number]: Nubia Henok on 02/24/20 4:[address] CM spoke with Robin Mckeon and she stated that she wanted patient to go to Hospice. CM gave her [facility] phone number to call and check to see if they will fit her expectations. Robin will call CM back to let her know if [facility] is their choice. Robin did call CM back and they are wanting [facility]. FINA completed. CM faxed records to [facility]. Eldon with [facility] came out and evaluated patient and stated that she is not GIP appropriate. Eldon was going to call patients daughter and give update. Eldon stated that family was considering either [facility] or [facility] for placement. CM will continue to follow and assist as needed with discharge planning needs. DCP- Discharge Planning Updated by [id number]: Estela Galdamez on 02/23/20 3:[address] PHONE IN ROOM AND SISTER CONNECTED WITH PATIENT DCP- Discharge Planning Updated by [id number]: Estela Galdamez on 02/23/20 12:[address] I spoke with Robin (sister) at length about her options. She would like to talk with her sister. I attempted to make arrangements but she does not have a phone in her room. I have placed a work order to get her a phone. She will then speak with Vane, her brother and the patient's son about Hospice and get back with me DCP- Discharge Planning Updated by [id number]: Estela Galdamez on 02/23/20 11:[address] I spoke with Ginny at [facility] to see if there was documentation about hospice. She said I would need to speak with the patient and/or her sister. Ginny stated that she is her own decision maker, but her sister pays her bill. She does have a son who is local. I spoke with the patient to see what she would want and she asked to know her options. I tried to explain them to her the best I could, but I do not think she understood. She then said "I don't even know where I am at" I asked her if she has a sister and she answered that appropriately. She did given me permission to call her sister. I called her and left her a message for her to call me back. DCP- Discharge Planning Updated by [id number]: Estela Galdamez on 02/17/20 3:[address] Patient Name: LINDSEY BRIZUELA Admission Status: Accout number: [id number] Admission Date: 02-16-2020 : 1940 Admission Diagnosis: Attending: ZOYA, Current LOS: 1 Anticipated DC Date: Planned Disposition: Nursing Facility [facility] Primary Insurance: [employer] Discharge Planning Comments: PATIENT IS UNABLE TO ANSWER QUESTIONS, SHE IS A SHELTER RESIDENT AT [facility] I SPOKE WITH FAITH AT [facility] AND SHE STATED THAT THE PATIENT IS USUALLY VERY ALERY AND ORIENTED. SHE HAS REFUSED CARE AND THERAPY IN THE PAST, BUT THEY WERE RECENTLY GETTING HER UP TO A NAM CHAIR AND TAKING HER TO THE [facility] FOR MEALS. SHE HAS BEEN THERE 1 YEAR IN A SHELTER BED. SHE HAS A SON, CARL BRIZUELA [phone] HE COME OFTEN TO VISIT HER. I HAVE ATTEMPTED TO CALL HIM MULTIPLE TIMES TODAY TO GET CONSENT FROM HIM FOR SURGERY. DR ARGUETA WAS GOING TO TAKE HER TO SURGERY TODAY, BUT SHE IS NOT ABLE TO SIGN HER OWN CONSENTS. CM WILL CONTINUE TO FOLLOW AND ASSIST WITH GETTING AHOLD OF CARL I LEFT VOICE MESSAGES AT 1145 & 1600 Grapple Operator: Estela Galdamez DCPIA - Discharge Planning Initial Assessment Updated by [email or web address]: Estela Galdamez on 02/17/20 4:13 pm * Is the patient Alert and Oriented? No * PCP [facility] * Pharmacy [facility] * Facility Name [facility] * ADLs Total Dependent * List name and contact numbers for known caregivers / representatives who currently or will assist patient after discharge: CARL BRIZUELA (SON) [phone] * Verbal permission to speak to the caregivers and representatives has been obtained from the patient. N/A * Additional services required to return to the preadmission environment? No * Can the patient safely return to the preadmission environment? Yes * Has this patient been hospitalized within the prior 30 days at any hospital? No Last DP export: 02/28/20 8:05 a Patient Name: LINDSEY BRIZUELA Page [phone] at 1153 All edits/amendments must be made on the electronic document DICTATION DATE: 02/28/20 1153 COST CLERK: ROSMERY 02/28/20 1153 RPT#: [id number] DC DATE: STATUS: ADM IN [facility] [address] [place] [address] END OF REPORT
[2020-02-28 12:54] VITALS: BP 173/83
--- NOTE | 2020-02-28 14:04 | MORECARE ---
CASE MANAGEMENT DISCHARGE SUMMARY PATIENT: LINDSEY BRIZUELA UNIT: [id number] ADM DATE: 02/16/20 AGE: 79 : 40 SEX: F ROOM/BED: D.2204 AUTHOR: TARYNDOC PHYSICIAN: REFERRING PHYSICIAN: VITALIY KENNY MD DATE OF SERVICE: 02/28/20 Discharge Plan Patient Name: LINDSEY BRIZUELA [facility] [facility] 1940 Planned Disposition: Nursing Facility [facility] Cert Anticipated Discharge Date: Discharge Date: Expected LOS: Initial Reviewer: [email or web address] Initial Review Date: 02/16/2020 Generated: 02/28/20 3:03 pm Comments DCP- Discharge Planning Updated by [id number]: Estela Galdamez on 02/28/20 10:[address] [place] with [facility] here to assess her wound. DCP- Discharge Planning Updated by [id number]: Estela Galdamez on 02/28/20 7:[address] sent wound note to [facility] DCP- Discharge Planning Updated by [id number]: Estela Galdamez on 02/28/20 7:[address] spoke with Karolina with [facility] to see if the patient could be placed in their GIP for Respite till she can get terminologist care somewhere. [facility]) Karolina is going to check and call me back DCP- Discharge Planning Updated by [id number]: Estela Galdamez on 02/27/20 12:[address] Spoke with Robin ( patients sister) to let her know about [facility] and that I have not heard back from Ayah, but I would try them again in the AM. She will call Nel At [facility] tomorrow for more details. DCP- Discharge Planning Updated by [email or web address]: Estela Galdamez on 02/26/20 8:[address] LATE ENTRY: 02/25/20 @ 1135 Spoke with Robin patient's sister and she stated that she had spoken to Ginny at [facility] [place] and would like to proceed with [facility]. Her first choice is [facility] and thee second choice is [facility]. I called [facility] and spoke with Letty, she stated that a semi private room would cost $7400.00 per month and that she will need a NEG COVID test prior to admission to the facility. She said that insurance would cover the Hospice related needs. I also called [facility] and left a message with Beatrice to call me back. Letty at [facility] gave me a Private home in [facility] that is 1/2 the cost of [facility]. She stated that the lady that run's it is Anne Marie her number is [phone]. I will call Robin and update her on what I have found out. DCP- Discharge Planning Updated by [id number]: Nubia Henok on 02/24/20 4:[address] CM spoke with Robin Mckeon and she stated that she wanted patient to go to Hospice. CM gave her [facility] phone number to call and check to see if they will fit her expectations. Robin will call CM back to let her know if [facility] is their choice. Robin did call CM back and they are wanting [facility]. FINA completed. CM faxed records to [facility]. Eldon with [facility] came out and evaluated patient and stated that she is not GIP appropriate. Eldon was going to call patients daughter and give update. Eldon stated that family was considering either [facility] or [facility] for placement. CM will continue to follow and assist as needed with discharge planning needs. DCP- Discharge Planning Updated by [email or web address]: Estela Galdamez on 02/23/20 3:[address] PHONE IN ROOM AND SISTER CONNECTED WITH PATIENT DCP- Discharge Planning Updated by [id number]: Estela Galdamez on 02/23/20 12:[address] I spoke with Robin (sister) at length about her options. She would like to talk with her sister. I attempted to make arrangements but she does not have a phone in her room. I have placed a work order to get her a phone. She will then speak with Vane, her brother and the patient's son about Hospice and get back with me DCP- Discharge Planning Updated by [id number]: Estela Galdamez on 02/23/20 11:[address] I spoke with Ginny at [place] to see if there was documentation about hospice. She said I would need to speak with the patient and/or her sister. Ginny stated that she is her own decision maker, but her sister pays her bill. She does have a son who is local. I spoke with the patient to see what she would want and she asked to know her options. I tried to explain them to her the best I could, but I do not think she understood. She then said "I don't even know where I am at" I asked her if she has a sister and she answered that appropriately. She did given me permission to call her sister. I called her and left her a message for her to call me back. DCP- Discharge Planning Updated by [id number]: Estela Galdamez on 02/17/20 3:[address] Patient Name: LINDSEY BRIZUELA Admission Status: Accout number: [id number] Admission Date: 02-16-2020 : 1940 Admission Diagnosis: Attending: ZOYA, Current LOS: 1 Anticipated DC Date: Planned Disposition: Nursing Facility [facility] Primary Insurance: [employer] Discharge Planning Comments: PATIENT IS UNABLE TO ANSWER QUESTIONS, SHE IS A SNF RESIDENT AT [facility] I SPOKE WITH FAITH AT [facility] AND SHE STATED THAT THE PATIENT IS USUALLY VERY ALERY AND ORIENTED. SHE HAS REFUSED CARE AND THERAPY IN THE PAST, BUT THEY WERE RECENTLY GETTING HER UP TO A NAM CHAIR AND TAKING HER TO THE [facility] FOR MEALS. SHE HAS BEEN THERE 1 YEAR IN A SNF BED. SHE HAS A SON, CARL BRIZUELA [phone] HE COME OFTEN TO VISIT HER. I HAVE ATTEMPTED TO CALL HIM MULTIPLE TIMES TODAY TO GET CONSENT FROM HIM FOR SURGERY. DR ARGUETA WAS GOING TO TAKE HER TO SURGERY TODAY, BUT SHE IS NOT ABLE TO SIGN HER OWN CONSENTS. CM WILL CONTINUE TO FOLLOW AND ASSIST WITH GETTING AHOLD OF CARL I LEFT VOICE MESSAGES AT 1145 & 1600 Jet Dyeing Machine Tender: Estela Galdamez DCPIA - Discharge Planning Initial Assessment Updated by [email or web address]: Estela Galdamez on 02/17/20 4:13 pm * Is the patient Alert and Oriented? No * PCP [facility] * Pharmacy [facility] * Facility Name [facility] * ADLs Total Dependent * List name and contact numbers for known caregivers / representatives who currently or will assist patient after discharge: CARL BRIZUELA (SON) [phone] * Verbal permission to speak to the caregivers and representatives has been obtained from the patient. N/A * Additional services required to return to the preadmission environment? No * Can the patient safely return to the preadmission environment? Yes * Has this patient been hospitalized within the prior 30 days at any hospital? No External Providers External Provider: [facility] Next Contact Date: Service Request Date: Service Type: Resolution: Reviewer: Comments: Last DP export: 02/28/20 10:53 a Patient Name: LINDSEY BRIZUELA Page [phone] at 1404 All edits/amendments must be made on the electronic document DICTATION DATE: 02/28/201402 SALES DESIGNER: ROSMERY 02/28/201402 RPT#: [id number] DC DATE: STATUS: ADM IN [facility] [address] [place] [address] END OF REPORT
--- NOTE | 2020-02-28 14:12 | MORECARE ---
CASE MANAGEMENT DISCHARGE SUMMARY PATIENT: LINDSEY BRIZUELA UNIT: [id number] ADM DATE: 02/16/20 AGE: 79 : 40 SEX: F ROOM/BED: D.2204 AUTHOR: TARYNDOC PHYSICIAN: REFERRING PHYSICIAN: VITALIY KENNY MD DATE OF SERVICE: 02/28/20 Discharge Plan Patient Name: LINDSEY BRIZUELA [facility] [facility] 1940 Planned Disposition: Nursing Facility [facility] Cert Anticipated Discharge Date: Discharge Date: Expected LOS: Initial Reviewer: [email or web address] Initial Review Date: 02/16/2020 Generated: 02/28/20 3:11 pm Comments DCP- Discharge Planning Updated by [id number]: Estela Galdamez on 02/28/20 1:[address] CLINCIALS FAXED TO [facility], I SPOKE WITH NEL AND SHE STATED THAT SHE WILL REQUIRE A COVID TEST. I HAVE ORDERED THAT. NEL WILL REVIEW CLINICAL AND GET BACK WITH ME DCP- Discharge Planning Updated by [id number]: Estela Galdamez on 02/28/20 10:[address] [place] with [facility] here to assess her wound. DCP- Discharge Planning Updated by [id number]: Estela Galdamez on 02/28/20 7:[address] sent wound note to [facility] DCP- Discharge Planning Updated by [id number]: Estela Galdamez on 02/28/20 7:[address] spoke with Karolina with [facility] to see if the patient could be placed in their GIP for Respite till she can get fdc care somewhere. [facility]) Karolina is going to check and call me back DCP- Discharge Planning Updated by [email or web address]: Estela Galdamez on 02/27/20 12:[address] Spoke with Robin ( patients sister) to let her know about [facility] and that I have not heard back from [facility], but I would try them again in the AM. She will call Nel At [facility]'s tomorrow for more details. DCP- Discharge Planning Updated by [id number]: Estela Galdamez on 02/26/20 8:[address] LATE ENTRY: 02/25/20 @ 1135 Spoke with Robin patient's sister and she stated that she had spoken to Ginny at [facility] and would like to proceed with [facility]. Her first choice is [facility] and thee second choice is [facility]. I called [facility] and spoke with Letty, she stated that a semi private room would cost $7400.00 per month and that she will need a NEG COVID test prior to admission to the facility. She said that insurance would cover the Hospice related needs. I also called [facility] and left a message with Beatrice to call me back. Letty at [facility] gave me a Private home in [facility] that is 1/2 the cost of [facility]. She stated that the lady that run's it is Anne Marie her number is [phone]. I will call Robin and update her on what I have found out. DCP- Discharge Planning Updated by [email or web address]: Nubia Whiting on 02/24/20 4:[address] CM spoke with Robin Mckeon and she stated that she wanted patient to go to Hospice. MUKUND gave her [facility] phone number to call and check to see if they will fit her expectations. Robin will call CM back to let her know if [facility] is their choice. Robin did call CM back and they are wanting [facility]. FINA completed. MUKUND faxed records to [facility]. Eldon with [facility] came out and evaluated patient and stated that she is not GIP appropriate. Eldon was going to call patients daughter and give update. Eldon stated that family was considering either [facility] or [facility] for placement. MUKUND will continue to follow and assist as needed with discharge planning needs. DCP- Discharge Planning Updated by [id number]: Estela Galdamez on 02/23/20 3:[address] PHONE IN ROOM AND SISTER CONNECTED WITH PATIENT DCP- Discharge Planning Updated by [email or web address]: Estela Galdamez on 02/23/20 12:[address] I spoke with Robin (sister) at length about her options. She would like to talk with her sister. I attempted to make arrangements but she does not have a phone in her room. I have placed a work order to get her a phone. She will then speak with Vane, her brother and the patient's son about Hospice and get back with me DCP- Discharge Planning Updated by [id number]: Estela Galdamez on 02/23/20 11:[address] I spoke with Ginny at [facility] to see if there was documentation about hospice. She said I would need to speak with the patient and/or her sister. Ginny stated that she is her own decision maker, but her sister pays her bill. She does have a son who is local. I spoke with the patient to see what she would want and she asked to know her options. I tried to explain them to her the best I could, but I do not think she understood. She then said "I don't even know where I am at" I asked her if she has a sister and she answered that appropriately. She did given me permission to call her sister. I called her and left her a message for her to call me back. DCP- Discharge Planning Updated by [id number]: Estela Galdaemz on 02/17/20 3:[address] Patient Name: LINDSEY BRIZUELA Admission Status: ER Accout number: [id number] Admission Date: 02-16-2020 : 1940 Admission Diagnosis: Attending: ZOYA, Current LOS: 1 Anticipated DC Date: Planned Disposition: Nursing Facility [facility] Primary Insurance: [facility] Discharge Planning Comments: PATIENT IS UNABLE TO ANSWER QUESTIONS, SHE IS A HALF-WAY RESIDENT AT [facility] I SPOKE WITH FAITH AT [facility] AND SHE STATED THAT THE PATIENT IS USUALLY VERY ALERY AND ORIENTED. SHE HAS REFUSED CARE AND THERAPY IN THE PAST, BUT THEY WERE RECENTLY GETTING HER UP TO A NAM CHAIR AND TAKING HER TO THE [facility]FE FOR MEALS. SHE HAS BEEN THERE 1 YEAR IN A HALF-WAY BED. SHE HAS A SON, CARL BRIZUELA [phone] HE COME OFTEN TO VISIT HER. I HAVE ATTEMPTED TO CALL HIM MULTIPLE TIMES TODAY TO GET CONSENT FROM HIM FOR SURGERY. DR ARGUETA WAS GOING TO TAKE HER TO SURGERY TODAY, BUT SHE IS NOT ABLE TO SIGN HER OWN CONSENTS. CM WILL CONTINUE TO FOLLOW AND ASSIST WITH GETTING AHOLD OF CARL I LEFT VOICE MESSAGES AT 1145 & 1600 Marklogic Developer: Estela Galdamez DCPIA - Discharge Planning Initial Assessment Updated by [id number]: Estela Galdamez on 02/17/20 4:13 pm * Is the patient Alert and Oriented? No * PCP [facility] * Pharmacy [facility] * Facility Name [facility] * ADLs Total Dependent * List name and contact numbers for known caregivers / representatives who currently or will assist patient after discharge: CARL BRIZUELA (SON) [phone] * Verbal permission to speak to the caregivers and representatives has been obtained from the patient. N/A * Additional services required to return to the preadmission environment? No * Can the patient safely return to the preadmission environment? Yes * Has this patient been hospitalized within the prior 30 days at any hospital? No Last DP export: 02/28/20 1:04 p Patient Name: LINDSEY BRIZUELA Page [phone] at 1412 All edits/amendments must be made on the electronic document DICTATION DATE: 02/28/20 141 SERVICE TRANSFORMER REPAIR SUPERVISOR: ROSMERY 02/28/20 1411 RPT#: [id number] DC DATE: STATUS: ADM IN [facility] [address] [place] [address] END OF REPORT
[2020-02-28 16:36] VITALS: BP 160/74
--- NOTE | 2020-02-28 20:15 | NUR ---
LYING IN BED. ALERT AND ORIENTED TO SELF ONLY. CONFUSED. TELEMETRY SHOWS ST WITH RATE OF 103. RESP EVEN AND NONLABORED. DENIES PAIN. ELIZABETH CATH PATENT AND DRAINING CLOUDY YELLOW URINE. GEN EDEMA NOTED. DRSGS NOTED TO BLE WITH BILAT FOOT DROP BOOTS IN USE. NS @ 75 MLHR INFUSING IN LT FOREARM. SLOW TO RESPOND TO QUESTIONS IF AT ALL. SR ELEVATED X2. CL IN REACH. BED ALARM ON FOR PT SAFETY.
[2020-02-28 20:34] VITALS: BP 157/71
--- NOTE | 2020-02-29 00:20 | NUR ---
INCONT OF BOWELS AT THIS TIME.[facility] PERFORMED AND PLACED PT ON LT SIDE WITH PILLOWS BEHIND BACK. CL IN REACH.
[2020-02-29 00:45] VITALS: BP 147/68
--- NOTE | 2020-02-29 02:59 | NUR ---
LYING IN BED WITH EYES CLOSED. RESP EVEN AND NONLABORED. NO DISTRESS. CL IN REACH. BED ALARM ON.
[2020-02-29 05:57] VITALS: BP 149/58
[2020-02-29 07:31] LABS: CALC OSMOLALITY 285 mosm/kg (275-300); CALCIUM 8.3 mg/dL (8.5-10.1); CARBON DIOXIDE 23.5 mmol/L (21.0-32.0); CHLORIDE - SERUM 107 mmol/L (98-107); CREATININE - SERUM 0.7 mg/dL (0.6-1.3); GLUCOSE 147 mg/dL (74-106); MAGNESIUM - SERUM 1.6 mg/dL (1.8-2.4); POTASSIUM - SERUM 4.1 mmol/L (3.5-5.1); SODIUM 140 mmol/L (136-145); UREA NITROGEN 24 mg/dL (7-18); eGFR NON AFRICAN AMERICAN 85 mL/min (90-120)
[2020-02-29 08:31] LABS: BASOPHILS 0.2 % (0-2); HEMATOCRIT 29.6 % (36.0-48.0); HEMOGLOBIN 9.3 g/dL (12-16); IMMATURE GRANULOCYTES 0.9 % (0-5); LYMPHOCYTES 12.8 % (15-50); MCH 27.9 pg (26.0-34.0); MCHC 31.4 g/dL (31.0-37.0); MCV 88.9 fL (80.0-100.0); MEAN PLATELET VOLUME 9.6 fL (7.4-10.4); MONOCYTES 7.1 % (2-11); PLATELET COUNT 321 10x3/uL (130-400); RBC 3.33 10x6/uL (4.00-5.40); RDW 18.2 % (11.5-14.5); WBC 11.1 10x3/uL (4.8-10.8)
[2020-02-29 09:18] VITALS: BP 150/59
--- NOTE | 2020-02-29 10:37 | NUR ---
I have reviewed this patient and I concur with the Shift Assessment completed by the Licensed Practical Nurse today this shift.
[2020-02-29 13:21] VITALS: BP 147/56
--- NOTE | 2020-02-29 14:48 | MORECARE ---
CASE MANAGEMENT DISCHARGE SUMMARY PATIENT: LINDSEY BRIZUELA UNIT: [id number] ADM DATE: 02/16/20 AGE: 79 : 40 SEX: F ROOM/BED: D.2204 AUTHOR: TARYN,DOC PHYSICIAN: REFERRING PHYSICIAN: VITALIY KENNY MD DATE OF SERVICE: 02/29/20 Discharge Plan Patient Name: LINDSEY BRIZUELA [facility] 1940 Planned Disposition: Nursing Facility [facility] Cert Anticipated Discharge Date: Discharge Date: Expected LOS: Initial Reviewer: [email or web address] Initial Review Date: 02/16/2020 Generated: 02/29/20 3:48 pm Comments DCP- Discharge Planning Updated by [email or web address]: Nubia Whiting on 02/29/20 1:[address] CM spoke with Nel @ [facility] and faxed updated clinical and additional information given to Nel as requested. COVID still pending. CM will continue to follow and assist as needed with discharge planning / needs. DCP- Discharge Planning Updated by [email or web address]: Estela Galdamez on 02/28/20 1:[address] CLINCIALS [facility]XED TO [facility], I SPOKE WITH NEL AND SHE STATED THAT SHE WILL REQUIRE A COVID TEST. I HAVE ORDERED THAT. NEL WILL REVIEW CLINICAL AND GET BACK WITH ME DCP- Discharge Planning Updated by [id number]: Estela Galdamez on 02/28/20 10:[address] [place] with [facility] here to assess her wound. DCP- Discharge Planning Updated by [email or web address]: Estela Galdamez on 02/28/20 7:[address] sent wound note to [facility] DCP- Discharge Planning Updated by [email or web address]: Estela Gladamez on 02/28/20 7:[address] spoke with Karolina with [facility] to see if the patient could be placed in their GIP for Respite till she can get detention care somewhere. ([facility]) Karolina is going to check and call me back DCP- Discharge Planning Updated by [id number]: Estela Galdamez on 02/27/20 12:[address] Spoke with Robin ( patients sister) to let her know about [facility] and that I have not heard back from [facility], but I would try them again in the AM. She will call Nel At [facility] tomorrow for more details. DCP- Discharge Planning Updated by [id number]: Estela Galdamez on 02/26/20 8:[address] LATE ENTRY: 02/25/20 @ 1135 Spoke with Robin patient's sister and she stated that she had spoken to Ginny at [facility] and would like to proceed with [facility]. Her first choice is [facility] and thee second choice is [facility]. I called [facility] and spoke with Letty, she stated that a semi private room would cost $7400.00 per month and that she will need a NEG COVID test prior to admission to the facility. She said that insurance would cover the Hospice related needs. I also called [facility] and left a message with Beatrice to call me back. Letty at [facility] gave me a Private home in [facility] that is 1/2 the cost of [facility]. She stated that the lady that run's it is Anne Marie her number is [phone]. I will call Robin and update her on what I have found out. DCP- Discharge Planning Updated by [id number]: Nubia Whiting on 02/24/20 4:[address] CM spoke with Robin Mckeon and she stated that she wanted patient to go to Hospice. CM gave her [facility] phone number to call and check to see if they will fit her expectations. Robin will call CM back to let her know if [facility] is their choice. Robin did call CM back and they are wanting [facility]. FINA completed. CM faxed records to [facility]. Eldon with [facility] came out and evaluated patient and stated that she is not GIP appropriate. Eldon was going to call patients daughter and give update. Eldon stated that family was considering either [facility] or [facility] for placement. CM will continue to follow and assist as needed with discharge planning needs. DCP- Discharge Planning Updated by [id number]: Estela Galdamez on 02/23/20 3:[address] PHONE IN ROOM AND SISTER CONNECTED WITH PATIENT DCP- Discharge Planning Updated by [id number]: Estela Galdamez on 02/23/20 12:[address] I spoke with Robin (sister) at length about her options. She would like to talk with her sister. I attempted to make arrangements but she does not have a phone in her room. I have placed a work order to get her a phone. She will then speak with Vane, her brother and the patient's son about Hospice and get back with me DCP- Discharge Planning Updated by [email or web address]: Estela Galdamez on 02/23/20 11:[address] I spoke with Ginny at [facility] to see if there was documentation about hospice. She said I would need to speak with the patient and/or her sister. Ginny stated that she is her own decision maker, but her sister pays her bill. She does have a son who is local. I spoke with the patient to see what she would want and she asked to know her options. I tried to explain them to her the best I could, but I do not think she understood. She then said "I don't even know where I am at" I asked her if she has a sister and she answered that appropriately. She did given me permission to call her sister. I called her and left her a message for her to call me back. DCP- Discharge Planning Updated by [id number]: Estela Galdamez on 02/17/20 3:[address] Patient Name: LINDSEY BRIZUELA Admission Status: Accout number: [id number] Admission Date: 02-16-2020 : 1940 Admission Diagnosis: Attending: ZOYA, Current LOS: 1 Anticipated DC Date: Planned Disposition: Nursing Facility [facility] Primary Insurance: [employer] Discharge Planning Comments: PATIENT IS UNABLE TO ANSWER QUESTIONS, SHE IS A DETENTION RESIDENT AT [facility] I SPOKE WITH FAITH AT [facility] AND SHE STATED THAT THE PATIENT IS USUALLY VERY ALERY AND ORIENTED. SHE HAS REFUSED CARE AND THERAPY IN THE PAST, BUT THEY WERE RECENTLY GETTING HER UP TO A NAM CHAIR AND TAKING HER TO THE [facility] FOR MEALS. SHE HAS BEEN THERE 1 YEAR IN A DETENTION BED. SHE HAS A SON, CARL BRIZUELA [phone] HE COME OFTEN TO VISIT HER. I HAVE ATTEMPTED TO CALL HIM MULTIPLE TIMES TODAY TO GET CONSENT FROM HIM FOR SURGERY. DR ARGUETA WAS GOING TO TAKE HER TO SURGERY TODAY, BUT SHE IS NOT ABLE TO SIGN HER OWN CONSENTS. CM WILL CONTINUE TO FOLLOW AND ASSIST WITH GETTING AHOLD OF CARL Long LEFT VOICE MESSAGES AT 1145 & 1600 [facility]: Estela Galdamez DCPIA - Discharge Planning Initial Assessment Updated by [id number]: Estela Galdamez on 02/17/20 4:13 pm * Is the patient Alert and Oriented? No * [facility] * [facility] * Facility Name [facility] * ADLs Total Dependent * List name and contact numbers for known caregivers / representatives who currently or will assist patient after discharge: CARL BRIZUELA (SON) [phone] * Verbal permission to speak to the caregivers and representatives has been obtained from the patient. N/A * Additional services required to return to the preadmission environment? No * Can the patient safely return to the preadmission environment? Yes * Has this patient been hospitalized within the prior 30 days at any hospital? No Last DP export: 02/28/20 1:12 p Patient Name: LINDSEY BRIZUELA Page [id number] at 1448 All edits/amendments must be made on the electronic document DICTATION DATE: 02/29/201447 SUPERVISOR SLATE SPLITTING: ROSMERY 02/29/201447 RPT#: [id number] DC DATE: STATUS: ADM IN [facility] [address] [place] [address] END OF REPORT
[2020-02-29 16:44] VITALS: BP 131/61
--- NOTE | 2020-02-29 19:30 | NUR ---
LYING IN BED. CONFUSED. ORIENTED TO SELF ONLY. IRRITABLE. FLAT AFFECT. RESP SHALLOW, NONLABORED. BRUISES NOTED TO BUE.DRSGS NOTED TO BLE WITH FOOT DROP BOOTS IN USE. INCONT OF BOWELS. ELIZABETH CATH PATENT AND DRAINING CLEAR YELLOW URINE. EXTREMITIES FEEL COOL TO TOUCH. GEN EDEMA NOTED. DSRG NOTED TO SACRUM. TELEMETRY SHOWS SR WITH RATE OF 92. WAS PASSED ON BY CINDY STANLEY THAT PT HAS NO IV ACCESS AT THIS TIME DUE TO SEVERE EDEMA OF BUE AND INABILITY TO PLACE IV. SR ELEVATED X2. CL IN REACH.
[2020-02-29 20:54] VITALS: BP 135/55
[2020-03-01 00:02] VITALS: BP 178/67
--- NOTE | 2020-03-01 00:15 | NUR ---
LYING IN BED EATING CHIPS AND SNACKS. PT FEEDING SELF. CL IN REACH.
--- NOTE | 2020-03-01 02:18 | NUR ---
LYING IN BED. HASNT SLEPT MUCH TONIGHT. BED ALARM ON. CL IN REACH.
--- NOTE | 2020-03-01 04:34 | NUR ---
JUST NOW RESTING. PLACED ON O2 @ 2L/NC DUE TO SAO2 OF 90%. AWAKENS EASILY. RESP EVEN AND NONLABORED. NO ACUTE DISTRESS. CL IN REACH.
[2020-03-01 04:45] VITALS: BP 154/66
[2020-03-01 05:07] LABS: BASOPHILS 0.3 % (0-2); EOSINOPHILS 1.8 % (0-7); HEMATOCRIT 32.3 % (36.0-48.0); IMMATURE GRANULOCYTES 0.7 % (0-5); LYMPHOCYTES 11.5 % (15-50); MCH 27.9 pg (26.0-34.0); MEAN PLATELET VOLUME 10.4 fL (7.4-10.4); MONOCYTES 9.3 % (2-11); NEUTROPHILS 76.4 % (40-80); RBC 3.59 10x6/uL (4.00-5.40); RDW 18.8 % (11.5-14.5); WBC 10.8 10x3/uL (4.8-10.8)
[2020-03-01 05:24] LABS: PLATELET COUNT 419 10x3/uL (130-400)
[2020-03-01 05:36] LABS: ANION GAP 11.5 mmol/L (8-16); CALCIUM 8.8 mg/dL (8.5-10.1); CARBON DIOXIDE 26.7 mmol/L (21.0-32.0); CREATININE - SERUM 0.9 mg/dL (0.6-1.3); MAGNESIUM - SERUM 1.7 mg/dL (1.8-2.4); POTASSIUM - SERUM 4.2 mmol/L (3.5-5.1)
--- NOTE | 2020-03-01 08:32 | NUR ---
PATIENT LAYING ON LEFT SIDE. ASLEEP. CL IN REACH. BED ALARM ON. WCTM
[2020-03-01 08:54] VITALS: BP 135/52
--- NOTE | 2020-03-01 09:42 | OP ---
PATIENT NAME: LINDSEY BRIZUELA MEDICAL RECORD: [id number] :40 LOCATION:D.MS [id number] ADMISSION DATE:02/16/20 SURGEON: ALETA ARGUETA MD DATE OF OPERATION: 02/18/2020 PREOPERATIVE DIAGNOSES: 1. 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 2. Septicemia. POSTOPERATIVE DIAGNOSIS: 1. 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 Please see dimensions below. 2. Septicemia. PROCEDURE: Excisional debridement of stage IV decubitus ulcer of the sacrum with placement of Restrata (synthetic nanofiber matrix), which was meshed at 1.5 to 1 with application of a wound VAC on top of the Restrata. The dimensions of the debridement, including margins, measured 15.5 cm in the medial lateral direction. The debridement was 4.0 cm deep. The debridement in the cephalad caudad dimension was 9.5 cm. This was a sharp debridement. Debridement included skin, subcutaneous tissue, ligamentous tissue, exudate, and abscess content. The risks, possible complications and alternatives were explained to the patient on 02/17/2020. It became obvious that the patient had significant mental status changes and could not give consent to the procedure. Therefore, I canceled the procedure. We returned the patient to the ICU. The case workers spent 24 hours trying to obtain consent from family member but were unable to get consent from family member. This has become an emergency as the patient is decompensating. I felt pressed to proceed with emergency consent and operation because if this does not occur, I am fearful that it will lead to . OPERATIVE COURSE: The patient was conveyed to the operating room urgently on 02/18/2020. General anesthesia was induced by the Anesthesia staff. The patient was positioned prone. The perineum, buttocks, and lower back were sterilely prepped and draped. I began the debridements with the scalpel. This was sharp debridement. They include the contents above. I debrided back to healthy bleeding tissue. The debridement went down to the sacral bone. The debridement went inferiorly very close to the anus. Cultures were obtained. All the necrotic material that I could identify was debrided away. I irrigated with normal saline and then hydrogen peroxide. We then brought Restrata onto the sterile field and meshed at 1.5 to 1 fashion. It was placed on to the debrided area and was sewn to the edges with interrupted 4-0 Vicryls. In order to press the Restrata down on to the debrided area, I then placed a wound VAC sponge and cut it to the size of the defect. It was placed on top of the Restrata. The clear Cellophane-type dressings were applied over the black sponge. Unfortunately, because the debridement site was so close to the anus, we actually had to cover the anal opening with some Cellophane-type dressing. We are going to try to maintain her in a fashion so that she is not soiling the area continuously. In other words no cathartics. I then made a defect in Cellophane-type dressings applied a bridge out on to the thigh. I then applied the disk, which was attached to suction, which held a good "raisin." OPERATIVE REPORT [id number] LINDSEY BRIZUELA The patient was then extubated and conveyed to the intensive care unit in critical, but stable condition. TRANSINT:[id number] Voice Confirmation ID: [id number] DOCUMENT ID: [id number] ALETA ARGUETA MD at 0942 CC: [id number] DICTATION DATE: 02/29/20 172 [place] ERP DEVELOPER: 03/01/20 0254 [facility] IN [facility] [address] [place] [address]
--- NOTE | 2020-03-01 11:58 | MORECARE ---
CASE MANAGEMENT DISCHARGE SUMMARY PATIENT: LINDSEY BRIZUELA UNIT: [id number] ADM DATE: 02/16/20 AGE: 79 : 40 SEX: F ROOM/BED: D.2204 AUTHOR: TARYN,DOC PHYSICIAN: REFERRING PHYSICIAN: VITALIY KENNY MD DATE OF SERVICE: 03/01/20 Discharge Plan Patient Name: LINDSEY BRIZUELA [facility] [facility] 1940 Planned Disposition: Nursing Facility [facility] Cert Anticipated Discharge Date: Discharge Date: Expected LOS: Initial Reviewer: [email or web address] Initial Review Date: 02/16/2020 Generated: 03/01/20 12:57 pm Comments DCP- Discharge Planning Updated by [id number]: Estela Galdamez on 03/01/20 10:[address] SPOKE WITH NEL AT [facility] SHE WAS GOING TO TOUCH BASE WITH THE SISTER AND PENDING THE COVID TEST THEY WILL ACCEPT THE PATIENT DCP- Discharge Planning Updated by [id number]: Nubia Whiting on 02/29/20 1:[address] CM spoke with Nel @ [facility] and faxed updated clinical and additional information given to Nel as requested. COVID still pending. CM will continue to follow and assist as needed with discharge planning / needs. DCP- Discharge Planning Updated by [id number]: Estela Galdamez on 02/28/20 1:[address] CLINCIALS FAXED TO [facility], I SPOKE WITH NEL AND SHE STATED THAT SHE WILL REQUIRE A COVID TEST. I HAVE ORDERED THAT. NEL WILL REVIEW CLINICAL AND GET BACK WITH ME DCP- Discharge Planning Updated by [id number]: Estela Galdamez on 02/28/20 10:[address] Eldon with [facility] here to assess her wound. DCP- Discharge Planning Updated by [id number]: Estela Galdamez on 02/28/20 7:[address] sent wound note to [facility] DCP- Discharge Planning Updated by [email or web address]: Estela Galdamez on 02/28/20 7:[address] spoke with Karolina with [facility] to see if the patient could be placed in their GIP for Respite till she can get marine oil terminal superintendent care somewhere. ([facility]) Karolina is going to check and call me back DCP- Discharge Planning Updated by [email or web address]: Estela Galdamez on 02/27/20 12:[address] Spoke with Robin ( patients sister) to let her know about [facility] and that I have not heard back from [facility], but I would try them again in the AM. She will call Nel At [facility] tomorrow for more details. DCP- Discharge Planning Updated by [id number]: Estela Galdamez on 02/26/20 8:[address] LATE ENTRY: 02/25/20 @ 1135 Spoke with Robin patient's sister and she stated that she had spoken to Ginny at [facility] and would like to proceed with [facility]. Her first choice is [facility] and thee second choice is [facility]. I called [facility] and spoke with Letty, she stated that a semi private room would cost $7400.00 per month and that she will need a NEG COVID test prior to admission to the facility. She said that insurance would cover the Hospice related needs. I also called [facility] and left a message with Beatrice to call me back. Letty at [facility] gave me a Private home in [facility] that is 1/2 the cost of [facility]. She stated that the lady that run's it is Anne Marie her number is [phone]. I will call Robin and update her on what I have found out. DCP- Discharge Planning Updated by [email or web address]: Nubia Whiting on 02/24/20 4:[address] CM spoke with Robin Mckeon and she stated that she wanted patient to go to Hospice. MUKUND gave her [facility] phone number to call and check to see if they will fit her expectations. Robin will call CM back to let her know if [facility] is their choice. Robin did call CM back and they are wanting [facility]. FINA completed. [facility]D faxed records to [facility]. Eldon with [facility] came out and evaluated patient and stated that she is not GIP appropriate. Eldon was going to call patients daughter and give update. Eldon stated that family was considering either [facility] or [facility] for placement. CM will continue to follow and assist as needed with discharge planning needs. DCP- Discharge Planning Updated by [email or web address]: Estela Galdamez on 02/23/20 3:[address] PHONE IN ROOM AND SISTER CONNECTED WITH PATIENT DCP- Discharge Planning Updated by [email or web address]: Estela Rudolph on 02/23/20 12:[address] I spoke with Robin (sister) at length about her options. She would like to talk with her sister. I attempted to make arrangements but she does not have a phone in her room. I have placed a work order to get her a phone. She will then speak with Vane, her brother and the patient's son about Hospice and get back with me DCP- Discharge Planning Updated by [id number]: Estela Galdamez on 02/23/20 11:[address] I spoke with Ginny at [facility] to see if there was documentation about hospice. She said I would need to speak with the patient and/or her sister. Ginny stated that she is her own decision maker, but her sister pays her bill. She does have a son who is local. I spoke with the patient to see what she would want and she asked to know her options. I tried to explain them to her the best I could, but I do not think she understood. She then said "I don't even know where I am at" I asked her if she has a sister and she answered that appropriately. She did given me permission to call her sister. I called her and left her a message for her to call me back. DCP- Discharge Planning Updated by [id number]: Estela Rudolph on 02/17/20 3:[address] Patient Name: LINDSEY BRIZUELA Admission Status: ER Accout number: [id number] Admission Date: 02-16-2020 : 1940 Admission Diagnosis: Attending: ZOYA, Current LOS: 1 Anticipated DC Date: Planned Disposition: Nursing Facility [facility] Discharge Planning Comments: PATIENT IS UNABLE TO ANSWER QUESTIONS, SHE IS A FPC RESIDENT AT [facility] I SPOKE WITH FAITH AT [facility] AND SHE STATED THAT THE PATIENT IS USUALLY VERY ALERY AND ORIENTED. SHE HAS REFUSED CARE AND THERAPY IN THE PAST, BUT THEY WERE RECENTLY GETTING HER UP TO A NAM CHAIR AND TAKING HER TO THE [facility] FOR MEALS. SHE HAS BEEN THERE 1 YEAR IN A FPC BED. SHE HAS A SON, CARL BRIZUELA [phone] HE COME OFTEN TO VISIT HER. I HAVE ATTEMPTED TO CALL HIM MULTIPLE TIMES TODAY TO GET CONSENT FROM HIM FOR SURGERY. DR ARGUETA WAS GOING TO TAKE HER TO SURGERY TODAY, BUT SHE IS NOT ABLE TO SIGN HER OWN CONSENTS. CM WILL CONTINUE TO FOLLOW AND ASSIST WITH GETTING AHOLD OF CARL I LEFT VOICE MESSAGES AT 1145 & 1600 Manager Control: Estela Galdamez DCPIA - Discharge Planning Initial Assessment Updated by [id number]: Estela Galdamez on 02/17/20 4:13 pm * Is the patient Alert and Oriented? No * [facility] * Facility Name [facility] * ADLs Total Dependent * List name and contact numbers for known caregivers / representatives who currently or will assist patient after discharge: CARL BRIZUELA (SON) [phone] * Verbal permission to speak to the caregivers and representatives has been obtained from the patient. N/A * Additional services required to return to the preadmission environment? No * Can the patient safely return to the preadmission environment? Yes * Has this patient been hospitalized within the prior 30 days at any hospital? No Last DP export: 02/29/20 1:48 p Patient Name: LINDSEY BRIZUELA Page [phone] at 1158 All edits/amendments must be made on the electronic document DICTATION DATE: 03/01/201156 OFFSET PLATEMAKER: ROSMERY 03/01/201156 RPT#: [id number] DC DATE: STATUS: ADM IN [facility] [address] [place] [address] END OF REPORT
[2020-03-01 13:48] VITALS: BP 135/51
[2020-03-01 17:28] VITALS: BP 156/55
[2020-03-01 20:00] VITALS: BP 156/57
[2020-03-02 04:00] VITALS: BP 136/56
[2020-03-02 04:37] LABS: BASOPHILS 0.3 % (0-2); EOSINOPHILS 1.7 % (0-7); HEMATOCRIT 31.9 % (36.0-48.0); HEMOGLOBIN 9.8 g/dL (12-16); IMMATURE GRANULOCYTES 0.8 % (0-5); LYMPHOCYTES 12.8 % (15-50); MCH 28.2 pg (26.0-34.0); MCHC 30.7 g/dL (31.0-37.0); MCV 91.7 fL (80.0-100.0); MEAN PLATELET VOLUME 10.1 fL (7.4-10.4); MONOCYTES 8.2 % (2-11); NEUTROPHILS 76.2 % (40-80); PLATELET COUNT 438 10x3/uL (130-400); RBC 3.48 10x6/uL (4.00-5.40); WBC 12.1 10x3/uL (4.8-10.8)
[2020-03-02 04:57] LABS: ANION GAP 8.9 mmol/L (8-16); CARBON DIOXIDE 29.4 mmol/L (21.0-32.0); CREATININE - SERUM 1.1 mg/dL (0.6-1.3); MAGNESIUM - SERUM 1.5 mg/dL (1.8-2.4); POTASSIUM - SERUM 4.3 mmol/L (3.5-5.1)
--- NOTE | 2020-03-02 08:49 | MORECARE ---
CASE MANAGEMENT DISCHARGE SUMMARY PATIENT: LINDSEY BRIZUELA UNIT: [id number] ADM DATE: 02/16/20 AGE: 79 : 40 SEX: F ROOM/BED: D.2204 AUTHOR: TARYNDOC PHYSICIAN: REFERRING PHYSICIAN: VITALIY KENNY MD DATE OF SERVICE: 03/02/20 Discharge Plan Patient Name: LINDSEY BRIZUELA [facility] [facility] 1940 Planned Disposition: Nursing Facility [facility] Cert Anticipated Discharge Date: Discharge Date: Expected LOS: Initial Reviewer: [email or web address] Initial Review Date: 02/16/2020 Generated: 03/02/20 9:48 am Comments DCP- Discharge Planning Updated by [email or web address]: Estela Galdamez on 03/02/20 7:[address] Spoke with Nel at [facility] and they will accept her today. She will be going to the nurse will call report. Robin (patient's sister) will get in touch with her son and let him know. Robin is aware of everything above, she had already been contacted by Nel with [facility]. I have contacted Eldon with [facility] to let him know about discharge today. CM will continue to follow and assist with DC planning as needed. DCP- Discharge Planning Updated by [email or web address]: Estela Galdamez on 03/01/20 10:[address] SPOKE WITH NEL AT [facility] SHE WAS GOING TO TOUCH BASE WITH THE SISTER AND PENDING THE COVID TEST THEY WILL ACCEPT THE PATIENT DCP- Discharge Planning Updated by [email or web address]: Nubia Whiting on 02/29/20 1:[address] CM spoke with Nel @ [facility] and faxed updated clinical and additional information given to Nel as requested. COVID still pending. CM will continue to follow and assist as needed with discharge planning / needs. DCP- Discharge Planning Updated by [email or web address]: Estela Galdamez on 02/28/20 1:[address] CLINCIALS FAXED TO [facility], I SPOKE WITH NEL AND SHE STATED THAT SHE WILL REQUIRE A COVID TEST. I HAVE ORDERED THAT. NEL WILL REVIEW CLINICAL AND GET BACK WITH ME DCP- Discharge Planning Updated by [id number]: Estela Galdamez on 02/28/20 10:[address] Eldon with [facility] here to assess her wound. DCP- Discharge Planning Updated by [id number]: Estela Galdamez on 02/28/20 7:[address] sent wound note to [facility] DCP- Discharge Planning Updated by [email or web address]: Estela Galdamez on 02/28/20 7:[address] spoke with Karolina with [facility] to see if the patient could be placed in their GIP for Respite till she can get long-term care somewhere. [facility]) Karolina is going to check and call me back DCP- Discharge Planning Updated by [id number]: Estela Galdamez on 02/27/20 12:[address] Spoke with Robin ( patients sister) to let her know about [facility] and that I have not heard back from [facility], but I would try them again in the AM. She will call Nel At [facility] tomorrow for more details. DCP- Discharge Planning Updated by [email or web address]: Estela Galdamez on 02/26/20 8:[address] LATE ENTRY: 02/25/20 @ 1135 Spoke with Robin patient's sister and she stated that she had spoken to Ginny at [place] and would like to proceed with [facility]. Her first choice is [facility] and thee second choice is [facility]. I called [facility] and spoke with Letty, she stated that a semi private room would cost $7400.00 per month and that she will need a NEG COVID test prior to admission to the facility. She said that insurance would cover the Hospice related needs. I also called [facility] and left a message with Beatrice to call me back. Letty at [facility] gave me a Private home in [facility] that is 1/2 the cost of [facility]. She stated that the lady that run's it is Anne Marie her number is [phone]. I will call Robin and update her on what I have found out. DCP- Discharge Planning Updated by [email or web address]: Nubia Whiting on 02/24/20 4:[address] CM spoke with Robin Mckeon and she stated that she wanted patient to go to Hospice. MUKUND gave her [facility] phone number to call and check to see if they will fit her expectations. Robin will call CM back to let her know if [facility] is their choice. Robin did call CM back and they are wanting [facility]. FINA completed. CM faxed records to [facility]. Eldon with [facility] came out and evaluated patient and stated that she is not GIP appropriate. Eldon was going to call patients daughter and give update. Eldon stated that family was considering either [facility] or [facility] for placement. CM will continue to follow and assist as needed with discharge planning needs. DCP- Discharge Planning Updated by [id number]: Estela Galdamez on 02/23/20 3:[address] PHONE IN ROOM AND SISTER CONNECTED WITH PATIENT DCP- Discharge Planning Updated by [id number]: Estela Galdamez on 02/23/20 12:[address] I spoke with Robin (sister) at length about her options. She would like to talk with her sister. I attempted to make arrangements but she does not have a phone in her room. I have placed a work order to get her a phone. She will then speak with Vane, her brother and the patient's son about Hospice and get back with me DCP- Discharge Planning Updated by [id number]: Estela Galdamez on 02/23/20 11:[address] I spoke with Ginny at [place] to see if there was documentation about hospice. She said I would need to speak with the patient and/or her sister. Ginny stated that she is her own decision maker, but her sister pays her bill. She does have a son who is local. I spoke with the patient to see what she would want and she asked to know her options. I tried to explain them to her the best I could, but I do not think she understood. She then said "I don't even know where I am at" I asked her if she has a sister and she answered that appropriately. She did given me permission to call her sister. I called her and left her a message for her to call me back. DCP- Discharge Planning Updated by [email or web address]: Estela Galdamez on 02/17/20 3:[address] Patient Name: LINDSEY BRIZUELA Admission Status: ER Accout number: [id number] Admission Date: 02-16-2020 : 1940 Admission Diagnosis: Attending: ZOYA, Current LOS: 1 Anticipated DC Date: Planned Disposition: Nursing Facility [facility] Primary [facility] [employer] [facility] Discharge Planning Comments: PATIENT IS UNABLE TO ANSWER QUESTIONS, SHE IS A SHELTER RESIDENT AT [facility] I SPOKE WITH FAITH AT [facility] AND SHE STATED THAT THE PATIENT IS USUALLY VERY ALERY AND ORIENTED. SHE HAS REFUSED CARE AND THERAPY IN THE PAST, BUT THEY WERE RECENTLY GETTING HER UP TO A NAM CHAIR AND TAKING HER TO THE [facility]FE FOR MEALS. SHE HAS BEEN THERE 1 YEAR IN A SHELTER BED. SHE HAS A SON, CARL BRIZUELA [phone] HE COME OFTEN TO VISIT HER. I HAVE ATTEMPTED TO CALL HIM MULTIPLE TIMES TODAY TO GET CONSENT FROM HIM FOR SURGERY. DR ARGUETA WAS GOING TO TAKE HER TO SURGERY TODAY, BUT SHE IS NOT ABLE TO SIGN HER OWN CONSENTS. CM WILL CONTINUE TO FOLLOW AND ASSIST WITH GETTING AHOLD OF CARL I LEFT VOICE MESSAGES AT 1145 & 1600 Vacuum Cooker Operator: Estela Galdamez DCPIA - Discharge Planning Initial Assessment Updated by [id number]: Estela Galdamez on 02/17/20 4:13 pm * Is the patient Alert and Oriented? No * PCP [facility] * Pharmacy [facility] * Facility Name [facility] * ADLs Total Dependent * List name and contact numbers for known caregivers / representatives who currently or will assist patient after discharge: CARL BRIZUELA (SON) [phone] * Verbal permission to speak to the caregivers and representatives has been obtained from the patient. N/A * Additional services required to return to the preadmission environment? No * Can the patient safely return to the preadmission environment? Yes * Has this patient been hospitalized within the prior 30 days at any hospital? No Last DP export: 03/01/20 10:58 a Patient Name: LINDSEY BRIZUELA Page [phone] at 0849 All edits/amendments must be made on the electronic document DICTATION DATE: 03/02/20847 MANAGER CONTRACT: ROSMERY 03/02/20847 RPT#: [id number] DC DATE: STATUS: ADM IN [facility] [address] [facility] [place] [address] END OF REPORT
[2020-03-02 09:31] VITALS: BP 155/61
--- NOTE | 2020-03-02 12:51 | NUR ---
REPORT GIVEN TO JASON AT [facility].
[2020-03-02 13:29] VITALS: BP 141/51
--- NOTE | 2020-03-03 08:22 | MORECARE ---
CASE MANAGEMENT DISCHARGE SUMMARY PATIENT: LINDSEY BRIZUELA UNIT: [id number] ADM DATE: 02/16/20 AGE: 79 : 40 SEX: F ROOM/BED: D.2204 AUTHOR: TARYN,DOC PHYSICIAN: REFERRING PHYSICIAN: VITALIY KENNY MD DATE OF SERVICE: 03/03/20 Discharge Plan Patient Name: LINDSEY BRIZUELA [facility] [facility] 1940 Planned Disposition: Nursing Facility [facility] Cert Anticipated Discharge Date: Discharge Date: 03/02/2020 Expected LOS: 0 Initial Reviewer: [email or web address] Initial Review Date: 02/16/2020 Generated: 03/03/20 9:22 am DCP- Discharge Planning Updated by [id number]: Estela Galdamez on 03/02/20 7:[address] Spoke with Nel at [facility] and they will accept her today. She will be going to the nurse will call report. Lenora (patient's sister) will get in touch with her son and let him know. Lenora is aware of everything above, she had already been contacted by Nel with [facility]. I have contacted Eldon with [facility] to let him know about discharge today. CM will continue to follow and assist with DC planning as needed. DCP- Discharge Planning Updated by [id number]: Estela Galdamez on 03/01/20 10:[address] SPOKE WITH NEL AT [facility] SHE WAS GOING TO TOUCH BASE WITH THE SISTER AND PENDING THE COVID TEST THEY WILL ACCEPT THE PATIENT DCP- Discharge Planning Updated by [id number]: Nubia Whiting on 02/29/20 1:[address] CM spoke with Nel @ [facility] and faxed updated clinical and additional information given to Nel as requested. COVID still pending. CM will continue to follow and assist as needed with discharge planning / needs. DCP- Discharge Planning Updated by [id number]: Estela Galdamez on 02/28/20 1:[address] CLINCIALS FAXED TO [facility], I SPOKE WITH NEL AND SHE STATED THAT SHE WILL REQUIRE A COVID TEST. I HAVE ORDERED THAT. NEL WILL REVIEW CLINICAL AND GET BACK WITH ME DCP- Discharge Planning Updated by [email or web address]: Estela Galdamez on 02/28/20 10:[address] Eldon with [facility] here to assess her wound. DCP- Discharge Planning Updated by [id number]: Estela Galdamez on 02/28/20 7:[address] sent wound note to [facility] DCP- Discharge Planning Updated by [id number]: Estela Galdamez on 02/28/20 7:[address] spoke with Karolina with [facility] to see if the patient could be placed in their GIP for Respite till she can get fdc care somewhere. [facility]) Karolina is going to check and call me back DCP- Discharge Planning Updated by [id number]: Estela Galdamez on 02/27/20 12:[address] Spoke with Lenora ( patients sister) to let her know about [facility] and that I have not heard back from [facility], but I would try them again in the AM. She will call Nel At [facility] tomorrow for more details. DCP- Discharge Planning Updated by [id number]: Estela Galdamez on 02/26/20 8:[address] LATE ENTRY: 02/25/20 @ 1135 Spoke with Lenora patient's sister and she stated that she had spoken to Ginny at [place] and would like to proceed with [facility]. Her first choice is [facility] and thee second choice is [facility]. I called [facility] and spoke with Letty, she stated that a semi private room would cost $7400.00 per month and that she will need a NEG COVID test prior to admission to the facility. She said that insurance would cover the Hospice related needs. I also called [facility] and left a message with Beatrice to call me back. Letty at [facility] gave me a Private home in [facility] that is 1/2 the cost of [facility]. She stated that the lady that run's it is Anne Marie her number is [phone]. I will call Lenora and update her on what I have found out. DCP- Discharge Planning Updated by [id number]: Nubia Whiting on 02/24/20 4:[address] CM spoke with Lenora Mckeon and she stated that she wanted patient to go to Hospice. MUKUND gave her [facility] phone number to call and check to see if they will fit her expectations. Lenora will call CM back to let her know if [facility] is their choice. Lenora did call CM back and they are wanting [facility]. FINA completed. MUKUND faxed records to [facility]. Eldon with [facility] came out and evaluated patient and stated that she is not GIP appropriate. Eldon was going to call patients daughter and give update. Eldon stated that family was considering either [facility] or [facility] for placement. MUKUND will continue to follow and assist as needed with discharge planning needs. DCP- Discharge Planning Updated by [id number]: Estela Galdamez on 02/23/20 3:[address] PHONE IN ROOM AND SISTER CONNECTED WITH PATIENT DCP- Discharge Planning Updated by [id number]: Estela Galdamez on 02/23/20 12:[address] I spoke with Lenora (sister) at length about her options. She would like to talk with her sister. I attempted to make arrangements but she does not have a phone in her room. I have placed a work order to get her a phone. She will then speak with Vane, her brother and the patient's son about Hospice and get back with me DCP- Discharge Planning Updated by [id number]: Estela Galdamez on 02/23/20 11:[address] I spoke with Ginny at [place] to see if there was documentation about hospice. She said I would need to speak with the patient and/or her sister. Ginny stated that she is her own decision maker, but her sister pays her bill. She does have a son who is local. I spoke with the patient to see what she would want and she asked to know her options. I tried to explain them to her the best I could, but I do not think she understood. She then said "I don't even know where I am at" I asked her if she has a sister and she answered that appropriately. She did given me permission to call her sister. I called her and left her a message for her to call me back. DCP- Discharge Planning Updated by [email or web address]: Estela Galdamez on 02/17/20 3:[address] Patient Name: LINDSEY BRIZUELA Admission Status: ER Accout number: [id number] Admission Date: 02-16-2020 : 1940 Admission Diagnosis: Attending: ZOYA, Current LOS: 1 Anticipated DC Date: Planned Disposition: Nursing Facility [facility] Primary Insurance: [email or web address] Discharge Planning Comments: PATIENT IS UNABLE TO ANSWER QUESTIONS, SHE IS A SKILLED NURSING RESIDENT AT [facility] I SPOKE WITH FAITH AT [facility] AND SHE STATED THAT THE PATIENT IS USUALLY VERY ALERY AND ORIENTED. SHE HAS REFUSED CARE AND THERAPY IN THE PAST, BUT THEY WERE RECENTLY GETTING HER UP TO A NAM CHAIR AND TAKING HER TO THE [facility] FOR MEALS. SHE HAS BEEN THERE 1 YEAR IN A SKILLED NURSING BED. SHE HAS A SON, CARL BRIZUELA [phone] HE COME OFTEN TO VISIT HER. I HAVE ATTEMPTED TO CALL HIM MULTIPLE TIMES TODAY TO GET CONSENT FROM HIM FOR SURGERY. DR ARGUETA WAS GOING TO TAKE HER TO SURGERY TODAY, BUT SHE IS NOT ABLE TO SIGN HER OWN CONSENTS. CM WILL CONTINUE TO FOLLOW AND ASSIST WITH GETTING AHOLD OF CARL I LEFT VOICE MESSAGES AT 1145 & 1600 Rn Iv Therapy: Estela Galdamez DCPIA - Discharge Planning Initial Assessment Updated by [id number]: Estela Galdamez on 02/17/20 4:13 pm * Is the patient Alert and Oriented? No * PCP [facility] * Pharmacy [facility] * Facility Name [facility] * ADLs Total Dependent * List name and contact numbers for known caregivers / representatives who currently or will assist patient after discharge: CARL BRIZUELA (SON) [phone] * Verbal permission to speak to the caregivers and representatives has been obtained from the patient. N/A * Additional services required to return to the preadmission environment? No * Can the patient safely return to the preadmission environment? Yes * Has this patient been hospitalized within the prior 30 days at any hospital? No Coverage Notice Reviewer: [email or web address] - Estela Galdamez Notice Issued Date-Time: 03/02/2020 8:30 Notice Type: IM Discharge Notice Notice Delivered To: Family Member Relationship to Patient: Sister Soda Drier Feeder Name: LENORA GARCIA Delivery Method: PHONE - Phone [place] Days: Prior Verbal Notification: Yes Recipient Understood Notice: Recipient Signature: Med Rec Note Co-signed by Attending: Coverage Notice Comment: EXPLAINED TO SISTER LENORA, SHE ALREADY KNEW ABOUT DISCHARGE YESTERDAY PT TO BE DISCHARGED TO HOSPICE Last DP export: 03/02/20 7:49 a Patient Name: LINDSEY BRIZUELA Page [phone] at 0822 All edits/amendments must be made on the electronic document DICTATION DATE: 03/03/20821 NAPPER GRINDER: ROSMERY 03/03/20821 RPT#: [id number] DC DATE:03/02/20 [facility]US: [facility] [address] [place] [address] END OF REPORT
== END 2020-03-02 16:32 | disposition home health service (06) | DRG 853 ==
LOC: D.ER 12:50 → D.MS 13:27
PROVIDERS: Family Medicine; Family Medicine Adult Medicine; Internal Medicine Nephrology; Surgery; ADMIT Family Medicine; ATTEND Family Medicine
PROC: 0JB70ZZ Excision of Back Subcutaneous Tissue and Fascia, Open Approach (ICD-10-PCS; principal; 2020-02-18 14:15)
DX: A41.9 Sepsis, unspecified organism (principal); L89.154 Pressure ulcer of sacral region, stage 4; E43 Unspecified severe protein-calorie malnutrition; R53.2 Functional quadriplegia; R40.2314 Coma scale, best motor response, none, 24 hours or more after hospital admission; R40.2214 Coma scale, best verbal response, none, 24 hours or more after hospital admission; N17.9 Acute kidney failure, unspecified; D64.9 Anemia, unspecified; D47.3 Essential (hemorrhagic) thrombocythemia; F03.90 Unspecified dementia, unspecified severity, without behavioral disturbance, psychotic disturbance, mood disturbance, and anxiety; K59.00 Constipation, unspecified; I10 Essential (primary) hypertension; E78.5 Hyperlipidemia, unspecified; E11.9 Type 2 diabetes mellitus without complications; J44.9 Chronic obstructive pulmonary disease, unspecified; Z68.21 Body mass index [BMI] 21.0-21.9, adult; L89.622 Pressure ulcer of left heel, stage 2; R40.2134 Coma scale, eyes open, to sound, 24 hours or more after hospital admission; L08.9 Local infection of the skin and subcutaneous tissue, unspecified